=== PATIENT | male | born 1960 ===

== ENCOUNTER 2021-03-03 18:39 | Emergency (ER) | payer OTHER, SELFPAY ==
[2021-03-03 19:07] VITALS: BP 102/68; PULSE 101; RESP 16; TEMP 36.9; O2SAT 99
--- NOTE | 2021-03-03 19:37 | ED.GENADULT ---
HPI - General Adult General Chief complaint: Dental/Oral Stated complaint: Jaw infection. Time Seen by Provider: 03/03/21 18:59 Source: patient and RN notes reviewed Mode of arrival: ambulatory Limitations: no limitations History of Present Illness HPI narrative: Patient presents today complaint of a 1 week history of swelling to the right lower jawline, worse over the last 2 days. He does report some white drainage from the area. He has been cleaning with peroxide and applying triple antibiotic ointment. Reports pain has been progressively worsening as the area has been becoming larger and more reddened. History of diabetes and states his blood sugars are not well controlled. He has not been taking anything for pain at home. MD complaint: Possible abscess to right jaw Related Data Home Medications Medication Instructions Recorded Confirmed dulaglutide [Trulicity] mg SUBCUT 03/03/21 duloxetine mg PO 03/03/21 empagliflozin [Jardiance] mg 03/03/21 glimepiride mg 03/03/21 insulin glargine U-300 conc unit SUBCUT 03/03/21 [Toujeo SoloStar U-300 Insulin] Allergies Allergy/AdvReac Type Severity Reaction Status Date / Time amoxicillin Allergy Unknown Verified 03/03/21 18:59 Review of Systems Review of Systems: CONSTITUTIONAL: Denies body aches, fever, chills, or sweats. EYES: Denies visual changes, redness, or discharge. ENT: Denies rhinorrhea, congestion, sore throat, or otalgia. CARDIOVASCULAR: Denies chest pain, palpitations, or edema. RESPIRATORY: Denies cough or dyspnea. GASTROINTESTINAL: Denies abdominal pain, nausea, vomiting, or diarrhea. GENITOURINARY: Denies dysuria or hematuria. SKIN: Denies rash, itching. + Possible abscess to right jaw MUSCULOSKELETAL: Denies back pain, joint pain, or myalgia. NEUROLOGIC: Denies headache, numbness, tingling, or weakness. PSYCH: Denies depression or anxiety. [facility] Past Medical History Medical History (Updated 03/04/21 @ 10:37 by Argentina Baldwin, QU[place], [place]) Diabetes Social History Social History Smoking status: Smoker, status unknown Alcohol intake: current Comments At time of signature, I have reviewed and agree with nursing past medical, surgical, social and family history unless otherwise noted. Please see nursing chart for further information. There is no relevant family history pertinent to the presenting complaint Exam Narrative: GENERAL: Well-appearing, well-nourished, and in no acute distress. HEAD: Normocephalic, atraumatic. EYES: EOMI. No redness or drainage. Conjunctivae normal. ENT: Mucous membranes pink and moist. NECK: Normal AROM. CHEST: No respiratory distress. EXTREMITIES: Normal range of motion. No edema. SKIN: Warm, dry, no rash. Capillary refill normal. Normal skin turgor. Approximately 3 cm erythematous fluctuant area to the right lower jawline with superficial scabbed area in the center measuring 1.5 cm. Tender to palpation. NEURO: No focal deficits. Alert and oriented x3. Gait steady. PSYCH: Normal affect. No signs of depression or anxiety. Course Vital Signs Vital signs: Vital Signs Temperature 98.5 F 03/03/21 19:07 Pulse Rate 101 H 03/03/21 19:07 Respiratory Rate 16 03/03/21 19:07 Blood Pressure 102/68 03/03/21 19:07 Pulse Oximetry 99 03/03/21 19:07 Temperature 98.5 F 03/03/21 19:07 Pulse Rate 101 H 03/03/21 19:07 Respiratory Rate 16 03/03/21 19:07 Blood Pressure 102/68 03/03/21 19:07 Pulse Oximetry 99 03/03/21 19:07 Reviewed Procedures Abscess I/D face: Date of Incision: 03/03/21 Time of Incision: 19:25 Side (if applicable): right (Lower jaw) Sedation/analgesia: none Local Anesthetic: lidocaine 1% Amount of anesthesia used (mL): 2 Technique: incised with #11 blade Amount of fluid expressed (mL): 4 Irrigation: No Packing used?: iodoform (wick)
== END 2021-03-03 19:50 | disposition home or self-care (01) ==
PROVIDERS: Emergency Provider Nurse Practitioner; PCP Internal Medicine
DX: L02.01 Cutaneous abscess of face (principal); E11.9 Type 2 diabetes mellitus without complications; Z79.84 Long term (current) use of oral hypoglycemic drugs; Z79.4 Long term (current) use of insulin
CPT/HCPCS: 10061; 87070; 87147; 87186; 87205; 99203; G0463

== ENCOUNTER 2022-10-12 08:39 | Emergency (ER) | payer OTHER, SELFPAY ==
[2022-10-12 08:51] VITALS: BP 123/91; PULSE 106; RESP 16; TEMP 36.6; O2SAT 99
--- NOTE | 2022-10-12 09:17 | ED.DENTAL ---
HPI - Dental/Oral General Chief complaint: Dental/Oral Stated complaint: Toothache/Facial Swelling Source: patient Mode of arrival: ambulatory Limitations: no limitations History of Present Illness HPI Narrative: Patient presents for evaluation of left upper dental pain for the last 3 days. Symptoms started after he was eating a pork steak and attempted to remove some food with a toothpick. He states pain is constant, throbbing, 8/10 in severity. He denies any fever, chills, nausea, vomiting. He has been taking Tylenol for symptoms. He has associated left-sided facial swelling. He smokes 1 pack per day. He is diabetic and has a CGM. Readings have been 150-250's range. No additional complaints or concerns. Related Data Home Medications Medication Instructions Recorded Confirmed empagliflozin 25 mg tablet 25 mg PO DAILY 03/03/21 10/12/22 (Jardiance) insulin glargine U-300 conc 300 55 unit subcut DAILY 03/03/21 10/12/22 unit/mL (1.5 mL) subcutaneous pen (Toujeo SoloStar U-300 Insulin) blood-glucose sensor (FreeStyle 10/12/22 10/12/22 Last 3 Sensor device) dulaglutide 1.5 mg/0.5 mL 1.5 mg subcut WEEKLY 10/12/22 10/12/22 subcutaneous pen injector (Trulicity) insulin lispro 100 unit/mL 100 sliding scale dose subcut TID 10/12/22 10/12/22 subcutaneous pen (Humalog KwikPen (U-100) Insulin) venlafaxine 150 mg 150 mg PO DAILY 10/12/22 10/12/22 capsule,extended release 24 hr venlafaxine 75 mg capsule,extended 75 mg PO DAILY 10/12/22 10/12/22 release 24 hr Allergies Allergy/AdvReac Type Severity Reaction Status Date / Time amoxicillin Allergy Unknown Unknown Verified 10/12/22 08:59 Review of Systems Review of Systems: CONSTITUTIONAL: Denies fever, chills, or sweats. EYES: Denies visual changes, redness, or discharge. ENT: Reports left upper dental pain with associated left-sided facial swelling. Denies sore throat. CARDIOVASCULAR: Denies chest pain, palpitations, or edema. RESPIRATORY: Denies cough or dyspnea. GASTROINTESTINAL: Denies abdominal pain, nausea, vomiting, or diarrhea. GENITOURINARY: Denies dysuria or hematuria. SKIN: Denies rash or itching. MUSCULOSKELETAL: Denies back pain, joint pain, or myalgia. NEUROLOGIC: Denies headache, numbness, dizziness, or weakness. PSYCHIATRIC: Denies anxiety or depression. [facility] Past Medical History Medical History Dental infection Depression Diabetes Surgical History Surgical History History of carpal tunnel surgery History of hip surgery History of knee replacement Family History Family History Mother Family history non-contributory Social History Social History Smoking packs per day: 1 Smoking cigarettes per day: 20.0 Smoking status: Current every day smoker Alcohol intake: current Substance use: never Living arrangements: with family Gender identity (if verbalized by the patient): Male Sexual Orientation (if Verbalized by the Patient): Straight or Heterosexual Spiritual care concerns: No Exam Narrative: GENERAL: Well-appearing, well-nourished, and in no acute distress. HEAD: Normocephalic, atraumatic. There is decreased prominence of left nasolabial fold. EYES: PERRLA and EOMI. ENT: Nares clear, no rhinorrhea or epistaxis. Mucous membranes moist. Tooth #14 is absent. No visible or palpable dental abscess. Bilateral TMs pearly lemon nonbulging NECK: Supple. No adenopathy or masses. No carotid bruits or JVD CHEST: Clear to auscultation. No respiratory distress. No wheezes rales or rhonchi HEART: Regular rate and rhythm. No murmur heard. Normal peripheral pulses. ABDOMEN: Soft, nontender, nondistended, normal active bowel sounds. EXTREMITIES: Normal range of mohan
== END 2022-10-12 09:15 | disposition home or self-care (01) ==
PROVIDERS: Emergency Provider Nurse Practitioner; PCP Internal Medicine
DX: K04.7 Periapical abscess without sinus (principal); E11.9 Type 2 diabetes mellitus without complications; Z79.4 Long term (current) use of insulin; F32.A Depression, unspecified
CPT/HCPCS: 99213; G0463

== ENCOUNTER 2023-02-25 18:57 | Emergency (ER) | payer OTHER, SELFPAY ==
[2023-02-25 19:04] VITALS: BP 135/80; PULSE 111; RESP 18; TEMP 36.5; O2SAT 99
--- NOTE | 2023-02-25 19:17 | ED.EXTPRO ---
HPI - Extremity Problem General Chief complaint: Extremity Problem,Nontraumatic Stated complaint: swollen feet/out of insulin Time Seen by Provider: 02/25/23 19:05 Source: patient Mode of arrival: ambulatory Limitations: no limitations History of Present Illness HPI Narrative: Sd is a 62-year-old male patient presenting to the clinic today with complaints of bilateral feet/leg swelling x4 days. He also reports that he is out of his insulin (Tuojeo) and would like a refill. Reports that he called his primary care provider and they told him to come to the urgent care. Related Data Home Medications Medication Instructions Recorded Confirmed empagliflozin 25 mg tablet 25 mg PO DAILY 03/03/21 02/25/23 (Jardiance) insulin glargine U-300 conc 300 55 unit subcut DAILY 03/03/21 02/25/23 unit/mL (1.5 mL) subcutaneous pen (Toujeo SoloStar U-300 Insulin) blood-glucose sensor (FreeStyle 10/12/22 02/25/23 Last 3 Sensor device) dulaglutide 1.5 mg/0.5 mL 1.5 mg subcut WEEKLY 10/12/22 02/25/23 subcutaneous pen injector (Trulicity) insulin lispro 100 unit/mL 100 sliding scale dose subcut TID 10/12/22 02/25/23 subcutaneous pen (Humalog KwikPen (U-100) Insulin) venlafaxine 150 mg 150 mg PO DAILY 10/12/22 02/25/23 capsule,extended release 24 hr venlafaxine 75 mg capsule,extended 75 mg PO DAILY 10/12/22 02/25/23 release 24 hr Allergies Allergy/AdvReac Type Severity Reaction Status Date / Time amoxicillin Allergy Unknown Unknown Verified 02/25/23 19:15 Review of Systems Review of Systems: Pertinent positives per HPI. Patient denies any fever, chills, rash, headache, visual changes, dizziness, cough, runny nose, sore throat, shortness of breath, chest pain, palpitations, nausea, vomiting, diarrhea, constipation, abdominal pain, or any urinary issues. PMF Past Medical History Medical History Dental infection Depression Diabetes Surgical History Surgical History History of carpal tunnel surgery History of hip surgery History of knee replacement Family History Family History Mother Family history non-contributory Social History Social History Smoking packs per day: 1 Smoking cigarettes per day: 20.0 Smoking status: Current every day smoker Alcohol intake: current Substance use: never Living arrangements: with family Gender identity (if verbalized by the patient): Male Sexual Orientation (if Verbalized by the Patient): Straight or Heterosexual Spiritual care concerns: No Comments At the time of my signature, I reviewed and agree with the nursing past medical, surgical, social, and family history. There is no relevant family history pertinent to the patient complaint. Exam Narrative: General: Well-developed, well nourished, in no apparent distress Head: Normocephalic, atraumatic. Cardio: Regular rate and rhythm, s1 and s2 normal, no murmur appreciated. Resp: Clear to auscultation bilaterally, no rhonchi, rales, wheezing or rubs. Musculoskeletal: No deformity, non-tender to palpation, grossly normal range of motion, muscle strength strong and equal, peripheral pulse strong, 1+ pitting edema to the bilateral lower extremities, pain to palpation, no cyanosis, normal gait and station Course Course Emergency Course: Portions of this record may have been created with voice recognition software. Level of Care: Express Care Visit Vital Signs Vital signs: Vital Signs Temperature 36.5 C 02/25/23 19:04 Pulse Rate 111 H 02/25/23 19:04 Respiratory Rate 18 02/25/23 19:04 Blood Pressure 135/80 02/25/23 19:04 Pulse Oximetry 99 02/25/23 19:04 Oxygen Delivery Room Air 02/25/23 19:04 Temperature 36.5 C 02/25
== END 2023-02-25 19:25 | disposition left against medical advice (07) ==
PROVIDERS: Emergency Provider Nurse Practitioner Family; PCP Internal Medicine
DX: R60.0 Localized edema (principal); E11.9 Type 2 diabetes mellitus without complications; F17.210 Nicotine dependence, cigarettes, uncomplicated; F32.A Depression, unspecified
CPT/HCPCS: 99213; G0463

== ENCOUNTER 2023-04-11 17:59 | Emergency (ER) | payer SELFPAY ==
[2023-04-11 18:05] VITALS: BP 102/78; PULSE 135; RESP 18; TEMP 36.4; O2SAT 99
[2023-04-11 18:36] LABS: Glucose Point of Care 367 mg/dl (65-105)
--- NOTE | 2023-04-11 18:45 | ED.GENADULT ---
HPI - General Adult General Chief complaint: Extremity Problem,Nontraumatic Stated complaint: Swelling to Feet Source: patient Mode of arrival: ambulatory Limitations: no limitations History of Present Illness HPI narrative: Patient presents for evaluation of swelling, pain and redness in the bilateral lower extremity. He was evaluated here back in February of last year. He was encouraged to go to the hospital at that time. He opted to leave against medical advice. He has had intermittent swelling, redness and pain in the lower extremities since that time, left greater than the right. He is diabetic and previously had a continuous glucose monitor. He no longer is using that. He ran out of his JardiVoya.ge and has been injecting less than prescribed amount of toujeo, as he has limited medication left. He actually came in today requesting a refill on his toujeo. He is prescribed 55 units daily but has been injecting 50 units to make it last. No fever, chills, nausea, vomiting. His father had a DVT in the past. Patient does smoke. Related Data Home Medications Medication Instructions Recorded Confirmed empagliflozin 25 mg tablet 25 mg PO DAILY 03/03/21 04/11/23 (Jardiance) blood-glucose sensor (FreeStyle 10/12/22 04/11/23 Last 3 Sensor device) dulaglutide 1.5 mg/0.5 mL 1.5 mg subcut WEEKLY 10/12/22 04/11/23 subcutaneous pen injector (Trulicity) insulin lispro 100 unit/mL 100 sliding scale dose subcut TID 10/12/22 04/11/23 subcutaneous pen (Humalog KwikPen (U-100) Insulin) venlafaxine 150 mg 150 mg PO DAILY 10/12/22 04/11/23 capsule,extended release 24 hr venlafaxine 75 mg capsule,extended 75 mg PO DAILY 10/12/22 04/11/23 release 24 hr Allergies Allergy/AdvReac Type Severity Reaction Status Date / Time amoxicillin Allergy Intermediate Rash Verified 04/11/23 18:17 metformin Allergy Mild Abdominal Verified 04/11/23 18:17 Pain Review of Systems Review of Systems: CONSTITUTIONAL: Denies fever, chills, or sweats. EYES: Denies visual changes, redness, or discharge. ENT: Denies rhinorrhea, congestion, sore throat, or otalgia. CARDIOVASCULAR: Reports bilateral lower extremity swelling, left greater than right. Denies chest pain, palpitations RESPIRATORY: Denies cough or dyspnea. GASTROINTESTINAL: Denies abdominal pain, nausea, vomiting, or diarrhea. GENITOURINARY: Denies dysuria or hematuria. SKIN: Reports redness to bilateral lower extremities, left greater than right. MUSCULOSKELETAL: Reports pain in bilateral lower extremities, left greater the right. NEUROLOGIC: Denies headache, numbness, dizziness, or weakness. PSYCHIATRIC: Denies anxiety or depression. [facility] Past Medical History Medical History Dental infection Depression Diabetes Surgical History Surgical History History of carpal tunnel surgery History of hip surgery History of knee replacement Family History Family History Mother Family history non-contributory Social History Social History Smoking packs per day: 1 Smoking cigarettes per day: 20.0 Smoking status: Current every day smoker Alcohol intake: current Substance use: never Living arrangements: with family Gender identity (if verbalized by the patient): Male Sexual Orientation (if Verbalized by the Patient): Straight or Heterosexual Spiritual care concerns: No Exam Narrative: GENERAL: Well-appearing, well-nourished, and in no acute distress. HEAD: Normocephalic, atraumatic. EYES: PERRLA and EOMI. ENT: Nares clear, no rhinorrhea or epistaxis. Mucous membranes moist. Oropharynx without tonsillar hypertrophy exudate or other lesions. Bilateral TMs pearly lemon nonbulging NECK: Supple. No adenopathy
== END 2023-04-11 19:15 | disposition left against medical advice (07) ==
PROVIDERS: Emergency Provider Nurse Practitioner; PCP Internal Medicine
DX: L03.116 Cellulitis of left lower limb (principal); R22.42 Localized swelling, mass and lump, left lower limb; E11.620 Type 2 diabetes mellitus with diabetic dermatitis; Z79.4 Long term (current) use of insulin; F32.A Depression, unspecified; F17.210 Nicotine dependence, cigarettes, uncomplicated
CPT/HCPCS: 82948; 99213; G0463

== ENCOUNTER 2025-02-04 08:28 | Emergency (ER) | payer OTHER, SELFPAY ==
--- OUTSIDE RECORDS SUMMARY | 2014-12-13 03:45 | XMS_ITS | Continuity of Care Document ---
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 Role Phone Santana Mitchell MD Unavailable Unavailable Allergies, Adverse Reactions, Alerts Substance Reaction Status Criticality No Known Allergies Active No Inform ation Medications Medication Instructions Dosage Effective Dates (start - stop) Status Comments tobramycin 0.3 %-dexamethasone 0.1 % eye drops,suspension instill 1 drop by ophthalmic route 4 times every day in the right eye for 1 week - Active multivitamin tablet take 1 tablet by ora l route every day with food - Active Aleve 220 mg capsule - Active Procedures Procedure Date Office/outpatient Visit, Est Office/outpatient Visit, Est Office/outpatient Visit, New Remove Foreign Body From Eye Advance Directives Directive Yes / No Effective Date File Name No Information Encounters Encounter Description Practice Location Reason(s) For Visit Diagnoses Date Provider Providers Copied on Encounter Office/outpa tient Visit, Est [facility], [address], [place], [place], [id number], [place] tel:[phone] SEC Homer SHEA Professional Blurry vision (chief complaint) Punctate keratitis 5 Paula Dillon. [address] [facility], [facility] [place], [id number], [place]. tel:[phone] Referring Provider: Santana Nelson [address] [place] [place], [address] . tel:[phone] Office/outpa [place]ient Visit, [facility] [place], [address] [place] [address] [address], [place], [place], [id number], [phone] SEC [place] SHABBIR Professional WIE (chief complaint) Acute toxic conjunctivitis Punctate keratitis 2 5 Paula Dillon. [address] [facility], [facility] [place], [place], [id number], . tel:[phone] Referring Provider: Santana Nelson, [address] [place], [address] . tel:[phone] Office/outpa tient Visit, [facility], [address], [place], [place], [id number], [phone] SEC [place] SHABBIR Professional Foreign body sensation (chief complaint) Foreign body remaining in the eyelid 5 Juandav Dillon. [address] [facility], [facility] [place], [id number], . tel:[phone] Referring Provider: Santana Nelson, [address] [place], [address] . tel:[phone] Family History Family Member Type Diagnosis Age At Onset No Information Payers Payer name Insurance type Covered alliance party ID Authorlizziea tienedelia(s) [facility] Work Comp [id number] Social History Type Description Quantity Date Captured Comments Alcohol Use Details Unknown Caffeine Use Details Unknown Tobacco Use Status Smoking Status No Information Sex Male Chief Complaint And Reason For Visit From encounter dated '12/13/2014 08:45'. Blurry vision (chief complaint). Description: The 54 year old male presents for a 1 week follow up to punctate keratitis. Patient c/o feels like a hair in OD. Patient is using Tobramycin/dex qid OD. Reason For Referral Reason For Referral No Information History Of Present Illness Encounter Date Complaint History Of Prese nt Illness Blurry vision The 54 year old male presents for a 1 week follow up to punctate keratitis. Patient c/o feels like a hair in OD. Patient is using Tobramycin/dex qid OD. WIE The 54 year old male presents for a WIE in the right eye. Patient states he was seen a few weeks ago and GAW removed an FB. Patient thought the OD was doing okay but today the OD started sweeling, watering, and extremly sensative to light. Foreign body sensation The 54 ye ar old male presents for WIE for FBS. Pt states his eye was blood red a few days ago. He thinks something blew into his eyes at work on Thursday or Thursday. Pt is unsure what got into his eye, but it could have been metal. OD is scratchy feeling at the bottom lid. Pt has tried saline solution. Functional Status Date Functional Assessmen t No Information Instructions Date Instruction Additional Infor mation Return in 10 days wi Santana Mitchell M.D. for follow up exam. Related to Punctate keratitis Impression/Plan - Co ntinue tobramycin/Dexamethasone for 10 days, if symptoms persist return to clinic at that time for follow up or sooner with any problems. Related to Punctate keratitis Follow up - Return i n 10 days with Santana Mitchell M.D. for follow up exam. Related to Punctate keratitis Impression/Plan - Di scussed dx in detail with patient. Start Tobramycin/Dexamethasone 1gtt QID OD erx to [facility]. Return in 1 week for follow up or sooner with any problems Follow up - Return i n 1 week with Santana Mitchell M.D. for follow up exam. - Discussed diagnosi s in detail with patient. Inverted RUL, small FB embedded in RUL, removed with tweezers at slit lamp. Start Tobramycin /Dexamethasone 1gtt QID x 5 days then stop to prevent infection. Return to clinic as needed. Related to Foreign body remaining in the eyelid Foreign body remaini ng in the eyelid - Educational material given Related to Foreign body remaining in the eyelid - as needed Related to Forei gn body remaining in the eyelid Assessments Type Assessment Date assessment Punctate keratitis impression Punctate keratitis: 370.21. OD S Patient Care Teams Name Effective Dates (start - stop) Status Members No Information
--- OUTSIDE RECORDS SUMMARY | 2025-02-04 08:30 | XMS_ITS | Encounter Summary ---
Author Organization [facility] Address [address] [place] [address] Care Team Providers Care Web Merchant Name Role Phone Unavailable Primary Care Provider Unavailabl e Encounter Details Date Type Department Care Team (Late st Contact Info) Description 03/02/2007 Inpatient Historical HIS PATIENT IN A BED Charly Martin MD NO ADDRESS ON FILE Social History Tobacco Use Types Packs/Day Years Used Date Smoking Tobacco: Never Assessed Sex and Gender Information Value Date Recorded Sex Assigned at Not on file Legal Sex Male 5:27 AM DEPARTMENT DIRECTOR Gender Identity Not on file Sexual Orientation Not on file documented as of this encounter Plan of Treatment Not on file documented as of this encounter Procedures Procedure Name Priority Date/Time Associated Diagnosis Comments CBC WITH DIFFERENTIAL Routine 03/10/2007 4:00 AM DEPARTMENT DIRECTOR CBC WITH DIFFERENTIAL Routine 03/10/2007 4:00 AM DEPARTMENT DIRECTOR C-REACTIVE PROTEIN Routine 03/10/2007 4: 00 AM DEPARTMENT DIRECTOR COMPREHENSIVE METABOLIC PANEL Routine 03/10/2007 4:00 AM DEPARTMENT DIRECTOR IRON PANEL Routine 03/09/2007 6:15 AM DEPARTMENT DIRECTOR TSH Routine 03/09/2007 6:15 AM DEPARTMENT DIRECTOR MAGNESIUM LEVEL Routine 03/09/2007 6:15 AM DEPARTMENT DIRECTOR FERRITIN Routine 03/09/2007 6:15 AM DEPARTMENT DIRECTOR CBC WITH DIFFERENTIAL Routine 03/08/2007 4:25 AM DEPARTMENT DIRECTOR CBC WITH DIFFERENTIAL Routine 03/08/2007 4:25 AM DEPARTMENT DIRECTOR C-REACTIVE PROTEIN Routine 03/08/2007 4: 25 AM DEPARTMENT DIRECTOR CBC WITH DIFFERENTIAL Routine 03/06/2007 5:45 AM DEPARTMENT DIRECTOR CBC WITH DIFFERENTIAL Routine 03/06/2007 5:45 AM DEPARTMENT DIRECTOR SEDIMENTATION RATE Routine 03/06/2007 5: 45 AM DEPARTMENT DIRECTOR BASIC METABOLIC PANEL Routine 03/06/2007 5:45 AM DEPARTMENT DIRECTOR SOURCE, FLUID Routine 03/05/2007 11:50 AM DEPARTMENT DIRECTOR SYNOVIAL FLUID CRYSTAL Routine 7 11:50 AM DEPARTMENT DIRECTOR CELL COUNT WITH DIFFERENTIAL, BODY FLUID Routine 03/05/2007 11:50 AM DEPARTMENT DIRECTOR PROTEIN, BODY FLUID Routine 03/05/2007 1 1:50 AM DEPARTMENT DIRECTOR GLUCOSE, BODY FLUID Routine 03/05/2007 1 1:50 AM DEPARTMENT DIRECTOR CMV BY PCR, NON BLOOD Routine 03/05/2007 6:10 AM DEPARTMENT DIRECTOR EBV IGM, VCA Routine 03/05/2007 6:10 AM DEPARTMENT DIRECTOR EBV IGG, VCA Routine 03/05/2007 6:10 AM DEPARTMENT DIRECTOR CMV IGM Routine 03/05/2007 6:10 AM DEPARTMENT DIRECTOR CBC WITH DIFFERENTIAL Routine 03/05/2007 6:10 AM DEPARTMENT DIRECTOR CBC WITH DIFFERENTIAL Routine 03/05/2007 6:10 AM DEPARTMENT DIRECTOR CMV IGG Routine 03/05/2007 6:10 AM DEPARTMENT DIRECTOR C-REACTIVE PROTEIN Routine 03/05/2007 6: 10 AM DEPARTMENT DIRECTOR COMPREHENSIVE METABOLIC PANEL Routine 03/05/2007 6:10 AM DEPARTMENT DIRECTOR CBC WITH DIFFERENTIAL Routine 03/04/2007 4:30 AM DEPARTMENT DIRECTOR CBC WITH DIFFERENTIAL Routine 03/04/2007 4:30 AM DEPARTMENT DIRECTOR C-REACTIVE PROTEIN Routine 03/04/2007 4: 30 AM DEPARTMENT DIRECTOR SEDIMENTATION RATE Routine 03/03/2007 5: 11 AM DEPARTMENT DIRECTOR BASIC METABOLIC PANEL Routine 03/03/2007 5:11 AM DEPARTMENT DIRECTOR CBC WITH DIFFERENTIAL Routine 03/02/2007 7:55 PM DEPARTMENT DIRECTOR CBC WITH DIFFERENTIAL Routine 03/02/2007 7:55 PM DEPARTMENT DIRECTOR C-REACTIVE PROTEIN Routine 03/02/2007 7: 55 PM DEPARTMENT DIRECTOR CK Routine 03/02/2007 7:55 PM DEPARTMENT DIRECTOR COMPREHENSIVE METABOLIC PANEL Routine 03/02/2007 7:55 PM DEPARTMENT DIRECTOR URINALYSIS W/REFLEX MICROSCOPIC Routine 03/02/2007 7:50 PM DEPARTMENT DIRECTOR documented in this encounter Results * CBC WITH DIFFERENTIAL (03/10/2007 4:00 AM DEPARTMENT DIRECTOR) NEUTROPHILS 56 45 - 70 % INTERFAC E SYSTEM LYMPHOCYTES 32 16 - 45 % INTERFAC E SYSTEM MONOCYTES 7 3 - 13 % INTERFACE SYSTEM EOSINOPHILS 3 0 - 7 % INTERFAC E SYSTEM BASOPHILS 2 0 - 2 % INTERFACE SYSTEM NEUTROPHIL ABSOLUTE 3.83 1.90 - 7.00 K/uL INTERFACE SYSTEM LYMPHOCYTE ABSOLUTE 2.21 0.70 - 4.50 K/uL INTERFACE SYSTEM MONOCYTE ABSOLUTE 0.48 0.10 - 1.30 K/uL INTERFACE SYSTEM EOSINOPHIL ABSOLUTE 0.20 0.00 - 0.70 K/uL INTERFACE SYSTEM BASOPHILS ABSOLUTE 0.10 0.00 - 0.20 K/uL INTERFACE SYSTEM 03/10/2007 4:00 AM DEPARTMENT DIRECTOR Julián Nuñez MD HEMATOLOGY ORDERABLES Edited Performing Organization Address City/[facility] Co de Phone Number INTERFACE SYSTEM Refer to clinic/hospital department * (ABNORMAL) CBC WITH DIFFERENTIAL (03/10/2007 4:00 AM DEPARTMENT DIRECTOR) WBC 6.8 4.0 - 9.8 K/uL INTERFACE SYSTEM RBC 3.62(L) 4.50 - 5.40 M/uL INTERFACE SYSTEM HEMOGLOBIN 10.1(L) 13.6 - 16.5 g/dL INTERFACE SYSTEM HEMATOCRIT 29.9(L) 40.0 - 48.0 % INTERFACE SYSTEM MCV 82.6 82.0 - 99.0 fL INTERFACE SYSTEM MCH 27.9 27.2 - 32.6 pg INTERFACE SYSTEM MCHC 33.8 31.5 - 35.5 % INTERFACE SYSTEM RDW 12.1 11.5 - 14.5 % INTERFACE SYSTEM RDW-STDEV 35.7(L) 37.1 - 48.7 fL INTERFACE SYSTEM PLATELETS 377(H) 140 - 350 K/uL INTERFACE SYSTEM MPV 9.3 9.3 - 12.4 fL INTERFACE SYSTEM 03/10/2007 4:00 AM DEPARTMENT DIRECTOR Julián Nuñez MD HEMATOLOGY ORDERABLES Edited Performing Organization Address [facility] Phone Number INTERFACE SYSTEM Refer to clinic/hospital department * (ABNORMAL) COMPREHENSIVE METABOLIC PANEL (03/10/2007 4:00 AM DEPARTMENT DIRECTOR) GLUCOSE 87 65 - 99 mg/dL INTERFACE SYSTEM CREATININE 0.69 0.67 - 1.17 mg/dL INTERFACE SYSTEM CALCIUM 8.6 8.4 - 10.2 mg/dL INTERFACE SYSTEM ALKALINE PHOSPHATASE 57 40 - 129 U/L INTERFACE SYSTEM AST 40(H) 12 - 38 U/L INTERFACE SYSTEM ALT 49(H) 0 - 41 U/L INTERFACE SYSTEM TOTAL PROTEIN 6.5 6.3 - 8.6 g/dL INTERFACE SYSTEM ALBUMIN 3.5 3.4 - 4.8 g/dL INTERFACE SYSTEM BILIRUBIN TOTAL 0.2 0.2 - 1.0 mg/dL INTERFACE SYSTEM BUN 15 6 - 20 mg/dL INTERFACE SYSTEM SODIUM 139 135 - 145 mmol/L INTERFACE SYSTEM POTASSIUM 4.0 3.5 - 4.9 mmol/L INTERFACE SYSTEM CHLORIDE 104 96 - 108 mmol/L INTERFACE SYSTEM CO2 28 22 - 30 mmol/L INTERFACE SYSTEM GFR, >60 >=60 mL/min/1.7 sq meter INTERFACE SYSTEM GFR >60 >=60 mL/min/1.7 sq meter INTERFACE SYSTEM Comment: Estimated GFR rate interpretative information for both Americans and non- Americans is available on the [facility] Intranet at: [email or web address] [email or web address] Select: Lab Policies and Procedures Select: Reference Ranges - GFR 03/10/2007 4:00 AM DEPARTMENT DIRECTOR us Julián Nuñez MD CHEMISTRY ORDERABLES Edited Performing Organization Address [facility] Phone Number INTERFACE SYSTEM Refer to clinic/hospital department * (ABNORMAL) C-REACTIVE PROTEIN (03/10/2007 4:00 AM DEPARTMENT DIRECTOR) CRP 3.5(H) 0.0 - 0.8 mg/dL INTERFACE SYSTEM 03/10/2007 4:00 AM DEPARTMENT DIRECTOR us Julián Nuñez MD CHEMISTRY ORDERABLES Edited Performing Organization Address [facility] Phone Number INTERFACE SYSTEM Refer to clinic/hospital department * TSH (03/09/2007 6:15 AM DEPARTMENT DIRECTOR) TSH 2.64 0.27 - 4.20 uU/mL INTERFACE SYSTEM 03/09/2007 6:15 AM DEPARTMENT DIRECTOR us Julián Nuñez MD CHEMISTRY ORDERABLES Edited Performing Organization Address [facility] Phone Number INTERFACE SYSTEM Refer to clinic/hospital department * MAGNESIUM LEVEL (03/09/2007 6:15 AM DEPARTMENT DIRECTOR) MAGNESIUM 2.1 1.5 - 2.5 mg/dL INTERFACE SYSTEM 03/09/2007 6:15 AM DEPARTMENT DIRECTOR Julián Nuñez MD CHEMISTRY ORDERABLES Edited Performing Organization Address [facility] de Phone Number INTERFACE SYSTEM Refer to clinic/hospital department * (ABNORMAL) FERRITIN (03/09/2007 6:15 AM DEPARTMENT DIRECTOR) FERRITIN 534(H) 30 - 400 ng/mL INTERFACE SYSTEM 03/09/2007 6:15 AM DEPARTMENT DIRECTOR Julián Nuñez MD CHEMISTRY ORDERABLES Edited Performing Organization Address [facility] de Phone Number INTERFACE SYSTEM Refer to clinic/hospital department * (ABNORMAL) IRON PANEL (03/09/2007 6:15 AM DEPARTMENT DIRECTOR) IRON 25(L) 45 - 160 ug/dL INTERFACE SYSTEM TRANSFERRIN 169(L) 200 - 360 mg/dL INTERFACE SYSTEM IRON % SATURATION 12(L) 20 - 50 % INTERFACE SYSTEM TIBC 215(L) 250 - 450 ug/dL INTERFACE SYSTEM 03/09/2007 6:15 AM DEPARTMENT DIRECTOR Result [facility] Julián Nuñez MD CHEMISTRY ORDERABLES Edited Performing Organization Address [facility] Phone Number INTERFACE SYSTEM Refer to clinic/hospital department * CBC WITH DIFFERENTIAL (03/08/2007 4:25 AM DEPARTMENT DIRECTOR) NEUTROPHILS 48 45 - 70 % INTERFAC E SYSTEM LYMPHOCYTES 35 16 - 45 % INTERFAC E SYSTEM MONOCYTES 11 3 - 13 % INTERFACE SYSTEM EOSINOPHILS 5 0 - 7 % INTERFAC E SYSTEM BASOPHILS 1 0 - 2 % INTERFACE SYSTEM NEUTROPHIL ABSOLUTE 2.72 1.90 - 7.00 K/uL INTERFACE SYSTEM LYMPHOCYTE ABSOLUTE 1.98 0.70 - 4.50 K/uL INTERFACE SYSTEM MONOCYTE ABSOLUTE 0.63 0.10 - 1.30 K/uL INTERFACE SYSTEM EOSINOPHIL ABSOLUTE 0.27 0.00 - 0.70 K/uL INTERFACE SYSTEM BASOPHILS ABSOLUTE 0.06 0.00 - 0.20 K/uL INTERFACE SYSTEM 03/08/2007 4:25 AM DEPARTMENT DIRECTOR Julián Nuñez MD HEMATOLOGY ORDERABLES Edited Performing Organization Address [facility] Phone Number INTERFACE SYSTEM Refer to clinic/hospital department * (ABNORMAL) CBC WITH DIFFERENTIAL (03/08/2007 4:25 AM DEPARTMENT DIRECTOR) WBC 5.7 4.0 - 9.8 K/uL INTERFACE SYSTEM RBC 3.28(L) 4.50 - 5.40 M/uL INTERFACE SYSTEM HEMOGLOBIN 9.3(L) 13.6 - 16.5 g/dL INTERFACE SYSTEM HEMATOCRIT 27.2(L) 40.0 - 48.0 % INTERFACE SYSTEM MCV 82.9 82.0 - 99.0 fL INTERFACE SYSTEM MCH 28.4 27.2 - 32.6 pg INTERFACE SYSTEM MCHC 34.2 31.5 - 35.5 % INTERFACE SYSTEM RDW 12.2 11.5 - 14.5 % INTERFACE SYSTEM RDW-STDEV 36.4(L) 37.1 - 48.7 fL INTERFACE SYSTEM PLATELETS 298 140 - 350 K/uL INTERFACE SYSTEM MPV 9.8 9.3 - 12.4 fL INTERFACE SYSTEM 03/08/2007 4:25 AM DEPARTMENT DIRECTOR Julián Nuñez MD HEMATOLOGY ORDERABLES Edited Performing Organization Address [facility] Phone Number INTERFACE SYSTEM Refer to clinic/hospital department * (ABNORMAL) C-REACTIVE PROTEIN (03/08/2007 4:25 AM DEPARTMENT DIRECTOR) CRP 8.7(H) 0.0 - 0.8 mg/dL INTERFACE SYSTEM 03/08/2007 4:25 AM DEPARTMENT DIRECTOR Julián Nuñez MD CHEMISTRY ORDERABLES Edited Performing Organization Address [facility] Phone Number INTERFACE SYSTEM Refer to clinic/hospital department * (ABNORMAL) SEDIMENTATION RATE (03/06/2007 5:45 AM DEPARTMENT DIRECTOR) ESR (SEDIMENTATION RATE) 87(H) 0 - 20 mm/hr INTERFACE SYSTEM 03/06/2007 5:45 AM DEPARTMENT DIRECTOR Charly Martin MD HEMATOLOGY ORDERABLES Edited Performing Organization Address [facility] de Phone Number INTERFACE SYSTEM Refer to clinic/hospital department * (ABNORMAL) CBC WITH DIFFERENTIAL (03/06/2007 5:45 AM DEPARTMENT DIRECTOR) NEUTROPHILS 54 45 - 70 % INTERFAC E SYSTEM LYMPHOCYTES 28 16 - 45 % INTERFAC E SYSTEM MONOCYTES 14(H) 3 - 13 % INTERFACE SYSTEM EOSINOPHILS 3 0 - 7 % INTERFAC E SYSTEM BASOPHILS 1 0 - 2 % INTERFACE SYSTEM NEUTROPHIL ABSOLUTE 2.68 1.90 - 7.00 K/uL INTERFACE SYSTEM LYMPHOCYTE ABSOLUTE 1.40 0.70 - 4.50 K/uL INTERFACE SYSTEM MONOCYTE ABSOLUTE 0.68 0.10 - 1.30 K/uL INTERFACE SYSTEM EOSINOPHIL ABSOLUTE 0.15 0.00 - 0.70 K/uL INTERFACE SYSTEM BASOPHILS ABSOLUTE 0.04 0.00 - 0.20 K/uL INTERFACE SYSTEM 03/06/2007 5:45 AM DEPARTMENT DIRECTOR Charly Martin MD HEMATOLOGY ORDERABLES Edited Performing Organization Address [facility] Phone Number INTERFACE SYSTEM Refer to clinic/hospital department * (ABNORMAL) CBC WITH DIFFERENTIAL (03/06/2007 5:45 AM DEPARTMENT DIRECTOR) Pathologist [facility] WBC 5.0 4.0 - 9.8 K/uL INTERFACE SYSTEM RBC 3.34(L) 4.50 - 5.40 M/uL INTERFACE SYSTEM HEMOGLOBIN 9.4(L) 13.6 - 16.5 g/dL INTERFACE SYSTEM HEMATOCRIT 27.8(L) 40.0 - 48.0 % INTERFACE SYSTEM MCV 83.2 82.0 - 99.0 fL INTERFACE SYSTEM MCH 28.1 27.2 - 32.6 pg INTERFACE SYSTEM MCHC 33.8 31.5 - 35.5 % INTERFACE SYSTEM RDW 12.2 11.5 - 14.5 % INTERFACE SYSTEM RDW-STDEV 37.3 37.1 - 48.7 fL INTERFACE SYSTEM PLATELETS 240 140 - 350 K/uL INTERFACE SYSTEM MPV 9.7 9.3 - 12.4 fL INTERFACE SYSTEM 03/06/2007 5:45 AM DEPARTMENT DIRECTOR Charly Martin MD HEMATOLOGY ORDERABLES Edited Performing Organization Address [facility] Phone Number INTERFACE SYSTEM Refer to clinic/hospital department * (ABNORMAL) BASIC METABOLIC PANEL (03/06/2007 5:45 AM DEPARTMENT DIRECTOR) GLUCOSE 91 65 - 99 mg/dL INTERFACE SYSTEM CREATININE 0.70 0.67 - 1.17 mg/dL INTERFACE SYSTEM CALCIUM 7.8(L) 8.4 - 10.2 mg/dL INTERFACE SYSTEM BUN 14 6 - 20 mg/dL INTERFACE SYSTEM SODIUM 134(L) 135 - 145 mmol/L INTERFACE SYSTEM POTASSIUM 3.7 3.5 - 4.9 mmol/L INTERFACE SYSTEM CHLORIDE 99 96 - 108 mmol/L INTERFACE SYSTEM CO2 28 22 - 30 mmol/L INTERFACE SYSTEM GFR, >60 >=60 mL/min/1. 7 sq meter INTERFACE SYSTEM GFR >60 >=60 mL/min/1. 7 sq meter INTERFACE SYSTEM Comment: Estimated GFR rate interpretative information for both Americans and non- Americans is available on the [facility] Intranet at: [email or web address] Information [email or web address] Select: Lab Policies and Procedures Select: Reference Ranges - GFR 03/06/2007 5:45 AM DEPARTMENT DIRECTOR Charly Martin MD CHEMISTRY ORDERABLES Edited Performing Organization Address [facility] Phone Number INTERFACE SYSTEM Refer to clinic/hospital department * SOURCE, FLUID (03/05/2007 11:50 AM DEPARTMENT DIRECTOR) SOURCE FLUID Knee, Left INTERF CLARI SYSTEM 03/05/2007 11:5 0 AM DEPARTMENT DIRECTOR Charly Martin MD HEMATOLOGY ORDERABLES Edited Performing Organization Address [facility] de Phone Number INTERFACE SYSTEM Refer to clinic/hospital department * (ABNORMAL) SYNOVIAL FLUID CRYSTAL (03/05/2007 11:50 AM DEPARTMENT DIRECTOR) JOINT FLD CRYSTAL QTY Rare(A) Negative INTERFACE SYSTEM JOINT FLD CRYSTAL TYPE Extracellular INTERFACE SYSTEM JOINT FLD CRYSTAL Ca. Pyrophosphate INTERFACE SYSTEM Comment:Basic Calcium Phosph ate crystals are also present. JOINT FLD ADD'L CRYSTAL QTY Rare(A) Negative INTERFACE SYSTEM CRYSTALS INTERPRETED BY: Bebo John MD INTERFACE SYSTEM 03/05/2007 11:5 0 AM DEPARTMENT DIRECTOR us Charly Martin MD BODY FLUIDS AND STOOLS Edited Performing Organization Address [facility] Phone Number INTERFACE SYSTEM Refer to clinic/hospital department * PROTEIN, BODY FLUID (03/05/2007 11:50 AM DEPARTMENT DIRECTOR) PROTEIN, FLD 5.0 g/dL INTERFA CE SYSTEM Comment: Total Protein Fluid Interpretation: Transudate: <2.5 - 3.0 g/dL Exudate: >3.0 g/dL 03/05/2007 11:5 0 AM DEPARTMENT DIRECTOR us Charly Martin MD BODY FLUIDS AND STOOLS Edited Performing Organization Address [facility] Phone Number INTERFACE SYSTEM Refer to clinic/hospital department * GLUCOSE, BODY FLUID (03/05/2007 11:50 AM DEPARTMENT DIRECTOR) GLUCOSE, FLD 35 mg/dL INTERFA CE SYSTEM Comment: Glucose Fluid Interpretation: Transudate: Fluid/Serum Ratio >0.5 Exudate: Fluid/Serum Ratio <0.5 or <60 mg/dL 03/05/2007 11:5 0 AM DEPARTMENT DIRECTOR us Charly Martin MD BODY FLUIDS AND STOOLS Edited Performing Organization Address [facility] Phone Number INTERFACE SYSTEM Refer to clinic/hospital department * CELL COUNT WITH DIFFERENTIAL, BODY FLUID (03/05/2007 11:50 AM DEPARTMENT DIRECTOR) WBC, FLD 85,831 /uL INTERFACE SYSTEM RBC, FLD <10,000 /uL INTERFACE SYSTEM NEUTROPHILS, FLD 96 % INTERFACE SYSTEM LYMPHOCYTE, FLD 3 % INTERFACE SYSTEM MACROPHAGE, FLD 1 % INTERFACE SYSTEM CELLS COUNTED, FLD 100 WBC Counted INTERFACE SYSTEM 03/05/2007 11:5 0 AM DEPARTMENT DIRECTOR us Charly Martin MD BODY FLUIDS AND STOOLS Edited Performing Organization Address [facility] de Phone Number INTERFACE SYSTEM Refer to clinic/hospital department * (ABNORMAL) CBC WITH DIFFERENTIAL (03/05/2007 6:10 AM DEPARTMENT DIRECTOR) NEUTROPHILS 61 45 - 70 % INTERFAC E SYSTEM LYMPHOCYTES 23 16 - 45 % INTERFAC E SYSTEM MONOCYTES 14(H) 3 - 13 % INTERFACE SYSTEM EOSINOPHILS 2 0 - 7 % INTERFAC E SYSTEM BASOPHILS 1 0 - 2 % INTERFACE SYSTEM NEUTROPHIL ABSOLUTE 3.72 1.90 - 7.00 K/uL INTERFACE SYSTEM LYMPHOCYTE ABSOLUTE 1.41 0.70 - 4.50 K/uL INTERFACE SYSTEM MONOCYTE ABSOLUTE 0.82 0.10 - 1.30 K/uL INTERFACE SYSTEM EOSINOPHIL ABSOLUTE 0.11 0.00 - 0.70 K/uL INTERFACE SYSTEM BASOPHILS ABSOLUTE 0.03 0.00 - 0.20 K/uL INTERFACE SYSTEM 03/05/2007 6:10 AM DEPARTMENT DIRECTOR us Julián Nuñez MD HEMATOLOGY ORDERABLES Edited Performing Organization Address [facility] de Phone Number INTERFACE SYSTEM Refer to clinic/hospital department * (ABNORMAL) CBC WITH DIFFERENTIAL (03/05/2007 6:10 AM DEPARTMENT DIRECTOR) WBC 6.1 4.0 - 9.8 K/uL INTERFACE SYSTEM RBC 3.79(L) 4.50 - 5.40 M/uL INTERFACE SYSTEM HEMOGLOBIN 10.9(L) 13.6 - 16.5 g/dL INTERFACE SYSTEM HEMATOCRIT 31.6(L) 40.0 - 48.0 % INTERFACE SYSTEM MCV 83.4 82.0 - 99.0 fL INTERFACE SYSTEM MCH 28.8 27.2 - 32.6 pg INTERFACE SYSTEM MCHC 34.5 31.5 - 35.5 % INTERFACE SYSTEM RDW 12.2 11.5 - 14.5 % INTERFACE SYSTEM RDW-STDEV 37.1 37.1 - 48.7 fL INTERFACE SYSTEM PLATELETS 280 140 - 350 K/uL INTERFACE SYSTEM MPV 9.8 9.3 - 12.4 fL INTERFACE SYSTEM 03/05/2007 6:10 AM DEPARTMENT DIRECTOR Julián Nuñez MD HEMATOLOGY ORDERABLES Edited Performing Organization Address [facility] Phone Number INTERFACE SYSTEM Refer to clinic/hospital department * EBV IGM, VCA (03/05/2007 6:10 AM DEPARTMENT DIRECTOR) EBV IGM, VCA < OR = 0.90 EIA Value INTERFACE SYSTEM Comment: EIA VALUE INTERPRETATION < OR = 0.90 NEGATIVE - NO ANTIBODY DETECTED 0.91 - 1.09 EQUIVOCAL > OR = 1.10 POSITIVE - ANTIBODY DETECTED A POSITIVE RESULT IS INDICATIVE OF IGM ANTIBODY TO EBV VCA. THE CLINICAL DIAGNOSIS MUST BE INTERPRETED IN CONJUNCTION WITH THE CLINICAL SIGNS AND SYMPTOMS OF THE PATIENT. Lab test performed by: [employer] [id number] MIKHAIL DIAZ MD 03/05/2007 6:10 AM DEPARTMENT DIRECTOR Julián Nuñez MD CHEMISTRY ORDERABLES COM Edit ed Performing Organization Address [facility] Number INTERFACE SYSTEM Refer to clinic/hospital department * (ABNORMAL) EBV IGG, VCA (03/05/2007 6:10 AM DEPARTMENT DIRECTOR) EBV IGG, VCA >5.00(H) EIA Value INTERFA CE SYSTEM Comment: EIA VALUE INTERPRETATION < OR = 0.90 NEGATIVE - NO ANTIBODY DETECTED 0.91 - 1.09 EQUIVOCAL > OR = 1.10 POSITIVE - ANTIBODY DETECTED A POSITIVE RESULT INDICATES THAT THE PATIENT HAS ANTIBODY TO EBV VCA. IT DOES NOT DIFFERENTIATE BETWEEN AN ACTIVE OR PAST INFECTION. THE CLINICAL DIAGNOSIS MUST BE INTERPRETED IN CONJUNCTION WITH THE CLINICAL SIGNS AND SYMPTOMS OF THE PATIENT. Lab test performed by: [employer] [id number] MIKHAIL DIAZ MD 03/05/2007 6:10 AM DEPARTMENT DIRECTOR Julián Nuñez MD CHEMISTRY ORDERABLES Edited Performing Organization Address [facility] Phone Number INTERFACE SYSTEM Refer to clinic/hospital department * CMV BY PCR (03/05/2007 6:10 AM DEPARTMENT DIRECTOR) CMV SPECIMEN SOURCE Whole Blood INTERFACE SYSTEM CMV BY PCR Negative Negative INTERFACE SYSTEM Comment: Specimen Source: (CSF) Specimen specific comments: The presence of cytomegalovirus in cerebrosp inal fluid (CSF) as detected by PCR appears to correlate with infections of the central nervous systems ([employer]). CMV DNA detectable at a dilution of CSF equal to or greater than 1:1000 has correlated with clinically significant widespread infection of the [employer]. The clinical significance of lower levels is not well defined. The sensitivity of PCR for CMV infection of the [employer] appears to be high. Specificity also appears to be high as CMV DNA was not detected in the CSF of a limited number of immunosuppressed transplant recipients tested who were experiencing systemic CMV disease but did not have a CMV [employer] disease. General Comments: This test was developed and it?s performance characteristics determined by [facility]. It has not been cleared or approved by the U.S. Food and Drug Administration. Specimen Source: (Blood) Specimen specific comments: This assay is based on quantitative real-ti me PCR. The primers used amplify a conserved 61 bp region of the DNA polymerase gene of human CMV. Based on data from the [facility], these primers do not amplify any of the other seven human herpes viruses or human DNA sequences. It is thought that close to 100% of CMV strains will amplify with these primers, although genotypic sequence variations could result in a false negative result. This assay expresses results in units of CMV genome copies per mL of blood. The theoretical lower limit of detection of the assay is 200 copies/mL. The assay is accurate for quantitation in the range 2,000 - 1,250,000 genome copies/mL. Specimens found to have detectable CMV DNA beneath the level of accurate quantitation are reported as Positive, <2,000 genome copies/mL. If the specimen is found to be positive with greater than 1,250,000 genome copies/mL, a preliminary report is issued stating Positive: >1,250,000 copies/mL, and the specimen is subsequently retested after dilution to determine the actual copy number. Currently, there are no accepted standards for correlating specific copy numbers with CMV disease. Studies in our laboratory have shown that the quantitative assay is more sensitive than the qualitative PCR and the shell vial culture methods previously employed. In these studies, positive results ranged from 600 to 35,000,000 copies/mL. When the quantitative assay was positive but below the level of accurate quantitation, the qualitative PCR and culture assays were usually negative. At a level of 4,000 copies/mL approximately 60% of qualitative PCR assays were positive. In these evaluations, the shell vial culture was only positive at levels above 15,000 copies/mL. General comment: This test was developed and it's performance characteristics determined by [facility]. It's not been cleared or approved by the U.S. Food and Drug Administration. Testing performed by [facility], [place], [place]. 03/05/2007 6:10 AM DEPARTMENT DIRECTOR Julián Nuñez MD BODY FLUIDS AND STOOLS Edited Performing Organization Address [facility] de Phone Number INTERFACE SYSTEM Refer to clinic/hospital department * (ABNORMAL) CMV IGG (03/05/2007 6:10 AM DEPARTMENT DIRECTOR) CMV IGG >5.00(H) EIA Value INTERFACE SYSTEM Comment: EIA VALUE EXPLANATION OF TEST RESULTS --------- < OR = 0.90 NEGATIVE - NO CMV IGG ANTIBODY DETECTED 0.91 - 1.09 EQUIVOCAL > OR = 1.10 POSITIVE - CMV IGG ANTIBODY DETECTED A POSITIVE RESULT INDICATES THAT THE PATIENT HAS ANTIBODY TO CMV. IT DOES NOT DIFFERENTIATE BETWEEN AN ACTIVE OR PAST INFECTION. THE CLINICAL DIAGNOSIS MUST BE INTERPRETED IN CONJUNCTION WITH THE CLINICAL SIGNS AND SYMPTOMS OF THE PATIENT. Lab test performed by: [facility] [id number] [place] [address] MIKHAIL DIAZ MD 03/05/2007 6:10 AM DEPARTMENT DIRECTOR Julián Nuñez MD CHEMISTRY ORDERABLES Edited Performing Organization Address [facility] de Phone Number INTERFACE SYSTEM Refer to clinic/hospital department * CMV IGM (03/05/2007 6:10 AM DEPARTMENT DIRECTOR) CMV IGM 0.34 EIA Value INTERFACE SYSTEM Comment: INDEX VALUE EXPLANATION OF TEST RESULTS < 0.90 NEGATIVE - NO CMV IGM ANTIBODY DETECTED 0.90 - 1.10 EQUIVOCAL > OR = 1.11 POSITIVE - CMV IGM ANTIBODY DETECTED RESULTS FROM ANY ONE IGM ASSAY SHOULD NOT BE USED A SOLE DETERMINANT OF A CURRENT OR RECENT INFECTION. BECAUSE IGM TESTS CAN YIELD FALSE POSITIVE RESULTS AND LOW LEVELS OF IGM ANTIBODY MAY PERSIST FOR MORE THAN 12 MONTHS POST INFECTION, RELIANCE ON A SINGLE TEST RESULT COULD BE MISLEADING. IF AN ACUTE INFECTION IS SUSPECTED, CONSIDER OBTAINING A NEW SPECIMEN AND SUBMIT FOR BOTH IGG AND IGM TESTING IN TWO OR MORE WEEKS. Lab test performed by: [facility] [id number] [place] [address] MIKHAIL DIAZ MD 03/05/2007 6:10 AM DEPARTMENT DIRECTOR Julián Nuñez MD CHEMISTRY ORDERABLES Edited Performing Organization Address [facility] de Phone Number INTERFACE SYSTEM Refer to clinic/hospital department * (ABNORMAL) C-REACTIVE PROTEIN (03/05/2007 6:10 AM DEPARTMENT DIRECTOR) CRP 8.2(H) 0.0 - 0.8 mg/dL INTERFACE SYSTEM 03/05/2007 6:10 AM DEPARTMENT DIRECTOR Julián Nuñez MD CHEMISTRY ORDERABLES Edited Performing Organization Address [facility] Phone Number INTERFACE SYSTEM Refer to clinic/hospital department * (ABNORMAL) COMPREHENSIVE METABOLIC PANEL (03/05/2007 6:10 AM DEPARTMENT DIRECTOR) GLUCOSE 103(H) 65 - 99 mg/dL INTERFACE SYSTEM CREATININE 0.69 0.67 - 1.17 mg/dL INTERFACE SYSTEM CALCIUM 8.3(L) 8.4 - 10.2 mg/dL INTERFACE SYSTEM ALKALINE PHOSPHATASE 57 40 - 129 U/L INTERFACE SYSTEM AST 23 12 - 38 U/L INTERFACE SYSTEM ALT 34 0 - 41 U/L INTERFACE SYSTEM TOTAL PROTEIN 6.7 6.3 - 8.6 g/dL INTERFACE SYSTEM ALBUMIN 3.6 3.4 - 4.8 g/dL INTERFACE SYSTEM BILIRUBIN TOTAL 0.4 0.2 - 1.0 mg/dL INTERFACE SYSTEM BUN 11 6 - 20 mg/dL INTERFACE SYSTEM SODIUM 131(L) 135 - 145 mmol/L INTERFACE SYSTEM POTASSIUM 3.6 3.5 - 4.9 mmol/L INTERFACE SYSTEM CHLORIDE 95(L) 96 - 108 mmol/L INTERFACE SYSTEM CO2 26 22 - 30 mmol/L INTERFACE SYSTEM GFR, >60 >=60 mL/min/1. 7 sq meter INTERFACE SYSTEM GFR >60 >=60 mL/min/1. 7 sq meter INTERFACE SYSTEM Comment: Estimated GFR rate interpretative information for both Americans and non- Americans is available on the [facility] Intranet at: [email or web address] Select: Lab Policies and Procedures Select: Reference Ranges - GFR 03/05/2007 6:10 AM DEPARTMENT DIRECTOR us Julián Nuñez MD CHEMISTRY ORDERABLES Edited INTERFACE SYSTEM Refer to clinic/hospital department * CBC WITH DIFFERENTIAL (03/04/2007 4:30 AM DEPARTMENT DIRECTOR) NEUTROPHIL ABSOLUTE 3.42 1.90 - 7.00 K/uL INTERFACE SYSTEM LYMPHOCYTE ABSOLUTE 1.51 0.70 - 4.50 K/uL INTERFACE SYSTEM MONOCYTE ABSOLUTE 0.45 0.10 - 1.30 K/uL INTERFACE SYSTEM EOSINOPHIL ABSOLUTE 0.22 0.00 - 0.70 K/uL INTERFACE SYSTEM BASOPHILS ABSOLUTE 0.00 0.00 - 0.20 K/uL INTERFACE SYSTEM NEUTROPHILS, SEG 57 45 - 70 % INT ERFACE SYSTEM BANDS 4 0 - 5 % INTERFACE SYSTEM LYMPHOCYTES 25 16 - 45 % INTERFAC E SYSTEM MONOCYTES 8 3 - 13 % INTERFACE SYSTEM EOSINOPHILS 4 0 - 7 % INTERFAC E SYSTEM BASOPHILS 0 0 - 2 % INTERFACE SYSTEM ATYPICAL LYMPHOCYTE 2 0 - 5 % INTERFACE SYSTEM PLATELET EST. Consistent w/ count Normal INTERFACE SYSTEM ANISOCYTOSIS Slight INTERFA CE SYSTEM POIKILOCYTES Slight INTERFA CE SYSTEM MICROCYTES Slight INTERFACE SYSTEM CLUMPED PLATELETS Present INTERFACE SYSTEM GIANT PLATELETS Present INTE RFACE SYSTEM 03/04/2007 4:30 AM DEPARTMENT DIRECTOR Julián Nuñez MD HEMATOLOGY ORDERABLES Edited Performing Organization Address [facility] Phone Number INTERFACE SYSTEM Refer to clinic/hospital department * (ABNORMAL) CBC WITH DIFFERENTIAL (03/04/2007 4:30 AM DEPARTMENT DIRECTOR) WBC 5.6 4.0 - 9.8 K/uL INTERFACE SYSTEM RBC 3.75(L) 4.50 - 5.40 M/uL INTERFACE SYSTEM HEMOGLOBIN 10.8(L) 13.6 - 16.5 g/dL INTERFACE SYSTEM HEMATOCRIT 30.7(L) 40.0 - 48.0 % INTERFACE SYSTEM MCV 81.9(L) 82.0 - 99.0 fL INTERFACE SYSTEM MCH 28.8 27.2 - 32.6 pg INTERFACE SYSTEM MCHC 35.2 31.5 - 35.5 % INTERFACE SYSTEM RDW 12.1 11.5 - 14.5 % INTERFACE SYSTEM RDW-STDEV 35.9(L) 37.1 - 48.7 fL INTERFACE SYSTEM PLATELETS 252 140 - 350 K/uL INTERFACE SYSTEM MPV 10.1 9.3 - 12.4 fL INTERFACE SYSTEM 03/04/2007 4:30 AM DEPARTMENT DIRECTOR Julián Nuñez MD HEMATOLOGY ORDERABLES Edited Performing Organization Address [facility] Phone Number INTERFACE SYSTEM Refer to clinic/hospital department * (ABNORMAL) C-REACTIVE PROTEIN (03/04/2007 4:30 AM DEPARTMENT DIRECTOR) CRP 4.8(H) 0.0 - 0.8 mg/dL INTERFACE SYSTEM 03/04/2007 4:30 AM DEPARTMENT DIRECTOR Julián Nuñez MD CHEMISTRY ORDERABLES Edited Performing Organization Address [facility] Phone Number INTERFACE SYSTEM Refer to clinic/hospital department * (ABNORMAL) SEDIMENTATION RATE (03/03/2007 5:11 AM DEPARTMENT DIRECTOR) ESR (SEDIMENTATION RATE) 66(H) 0 - 20 mm/hr INTERFACE SYSTEM 03/03/2007 5:11 AM DEPARTMENT DIRECTOR us Charly Martin MD HEMATOLOGY ORDERABLES Edited Performing Organization Address [facility] Co de Phone Number INTERFACE SYSTEM Refer to clinic/hospital department * (ABNORMAL) BASIC METABOLIC PANEL (03/03/2007 5:11 AM DEPARTMENT DIRECTOR) GLUCOSE 86 65 - 99 mg/dL INTERFACE SYSTEM CREATININE 0.73 0.67 - 1.17 mg/dL INTERFACE SYSTEM CALCIUM 8.2(L) 8.4 - 10.2 mg/dL INTERFACE SYSTEM BUN 13 6 - 20 mg/dL INTERFACE SYSTEM SODIUM 136 135 - 145 mmol/L INTERFACE SYSTEM POTASSIUM 3.2(L) 3.5 - 4.9 mmol/L INTERFACE SYSTEM CHLORIDE 102 96 - 108 mmol/L INTERFACE SYSTEM CO2 26 22 - 30 mmol/L INTERFACE SYSTEM GFR, >60 >=60 mL/min/1. 7 sq meter INTERFACE SYSTEM GFR >60 >=60 mL/min/1. 7 sq meter INTERFACE SYSTEM Comment: Estimated GFR rate interpretative information for both Americans and non- Americans is available on the [facility] Intranet at: [email or web address] Select: Lab Policies and Procedures Select: Reference Ranges - GFR 03/03/2007 5:11 AM DEPARTMENT DIRECTOR us Charly Martin MD CHEMISTRY ORDERABLES Edited Performing Organization Address [facility] de Phone Number INTERFACE SYSTEM Refer to clinic/hospital department * (ABNORMAL) COMPREHENSIVE METABOLIC PANEL (03/02/2007 7:55 PM DEPARTMENT DIRECTOR) GLUCOSE 106(H) 65 - 99 mg/dL INTERFACE SYSTEM CREATININE 0.74 0.67 - 1.17 mg/dL INTERFACE SYSTEM CALCIUM 8.1(L) 8.4 - 10.2 mg/dL INTERFACE SYSTEM ALKALINE PHOSPHATASE 63 40 - 129 U/L INTERFACE SYSTEM AST 29 12 - 38 U/L INTERFACE SYSTEM ALT 34 0 - 41 U/L INTERFACE SYSTEM TOTAL PROTEIN 6.8 6.3 - 8.6 g/dL INTERFACE SYSTEM ALBUMIN 3.6 3.4 - 4.8 g/dL INTERFACE SYSTEM BILIRUBIN TOTAL 0.3 0.2 - 1.0 mg/dL INTERFACE SYSTEM BUN 16 6 - 20 mg/dL INTERFACE SYSTEM SODIUM 135 135 - 145 mmol/L INTERFACE SYSTEM POTASSIUM 3.6 3.5 - 4.9 mmol/L INTERFACE SYSTEM CHLORIDE 102 96 - 108 mmol/L INTERFACE SYSTEM CO2 24 22 - 30 mmol/L INTERFACE SYSTEM GFR, >60 >=60 mL/min/1. 7 sq meter INTERFACE SYSTEM GFR >60 >=60 mL/min/1. 7 sq meter INTERFACE SYSTEM Comment: Estimated GFR rate interpretative information for both Americans and non- Americans is available on the [facility] Intranet at: [email or web address] Select: Lab Policies and Procedures Select: Reference Ranges - GFR 03/02/2007 7:55 PM DEPARTMENT DIRECTOR Julián Nuñez MD CHEMISTRY ORDERABLES Edited Performing Organization Address [facility] de Phone Number INTERFACE SYSTEM Refer to clinic/hospital department * CK (03/02/2007 7:55 PM DEPARTMENT DIRECTOR) Pathologist [facility] CK 33 10 - 170 U/L INTERFACE SYSTEM 03/02/2007 7:55 PM DEPARTMENT DIRECTOR Julián Nuñez MD CHEMISTRY ORDERABLES Edited Performing Organization Address [facility] de Phone Number INTERFACE SYSTEM Refer to clinic/hospital department * (ABNORMAL) CBC WITH DIFFERENTIAL (03/02/2007 7:55 PM DEPARTMENT DIRECTOR) NEUTROPHILS 64 45 - 70 % INTERFAC E SYSTEM LYMPHOCYTES 19 16 - 45 % INTERFAC E SYSTEM MONOCYTES 10 3 - 13 % INTERFACE SYSTEM EOSINOPHILS 6 0 - 7 % INTERFAC E SYSTEM BASOPHILS 1 0 - 2 % INTERFACE SYSTEM NEUTROPHIL ABSOLUTE 1.99 1.90 - 7.00 K/uL INTERFACE SYSTEM LYMPHOCYTE ABSOLUTE 0.60(L) 0.70 - 4.50 K/uL INTERFACE SYSTEM MONOCYTE ABSOLUTE 0.31 0.10 - 1.30 K/uL INTERFACE SYSTEM EOSINOPHIL ABSOLUTE 0.20 0.00 - 0.70 K/uL INTERFACE SYSTEM BASOPHILS ABSOLUTE 0.03 0.00 - 0.20 K/uL INTERFACE SYSTEM 03/02/2007 7:55 PM DEPARTMENT DIRECTOR us Julián Nuñez MD HEMATOLOGY ORDERABLES Edited Performing Organization Address [facility] Phone Number INTERFACE SYSTEM Refer to clinic/hospital department * (ABNORMAL) CBC WITH DIFFERENTIAL (03/02/2007 7:55 PM DEPARTMENT DIRECTOR) WBC 3.1(L) 4.0 - 9.8 K/uL INTERFACE SYSTEM RBC 3.86(L) 4.50 - 5.40 M/uL INTERFACE SYSTEM HEMOGLOBIN 11.2(L) 13.6 - 16.5 g/dL INTERFACE SYSTEM HEMATOCRIT 32.2(L) 40.0 - 48.0 % INTERFACE SYSTEM MCV 83.4 82.0 - 99.0 fL INTERFACE SYSTEM MCH 29.0 27.2 - 32.6 pg INTERFACE SYSTEM MCHC 34.8 31.5 - 35.5 % INTERFACE SYSTEM RDW 11.9 11.5 - 14.5 % INTERFACE SYSTEM RDW-STDEV 36.3(L) 37.1 - 48.7 fL INTERFACE SYSTEM PLATELETS 224 140 - 350 K/uL INTERFACE SYSTEM MPV 9.8 9.3 - 12.4 fL INTERFACE SYSTEM 03/02/2007 7:55 PM DEPARTMENT DIRECTOR us Julián Nuñez MD HEMATOLOGY ORDERABLES Edited Performing Organization Address [facility] Phone Number INTERFACE SYSTEM Refer to clinic/hospital department * (ABNORMAL) C-REACTIVE PROTEIN (03/02/2007 7:55 PM DEPARTMENT DIRECTOR) CRP 5.6(H) 0.0 - 0.8 mg/dL INTERFACE SYSTEM 03/02/2007 7:55 PM DEPARTMENT DIRECTOR us Julián Nuñez MD CHEMISTRY ORDERABLES Edited Performing Organization Address [facility] Phone Number INTERFACE SYSTEM Refer to clinic/hospital department * (ABNORMAL) URINALYSIS (03/02/2007 7:50 PM DEPARTMENT DIRECTOR) COLOR UA Yellow INTERFACE SYSTEM CLARITY UA Clear Clear INTERFACE SYSTEM SPECIFIC GRAVITY UA 1.028 1.001 - 1.035 INTERFACE SYSTEM PH UA 5.5 5.0 - 8.0 INTERFACE SYSTEM LEUKOCYTE ESTERASE UA Negative Negative INTERFACE SYSTEM NITRITE UA Negative Negative INTERFACE SYSTEM PROTEIN UA Trace(A) Negative INTERFACE SYSTEM GLUCOSE UA Negative Negative INTERFACE SYSTEM KETONES UA Negative Negative INTERFACE SYSTEM UROBILINOGEN UA <1 <=1 mg/dL INTE RFACE SYSTEM BILIRUBIN UA Negative Negative INTERFA CE SYSTEM BLOOD UA Negative Negative INTERFACE SYSTEM WBC UA <1 0 - 3 /HPF INTERFACE SYSTEM RBC UA 1 0 - 3 /HPF INTERFACE SYSTEM BACTERIA UA 1+(A) None Seen /HPF INTERFACE SYSTEM 03/02/2007 7:50 PM DEPARTMENT DIRECTOR us Julián Nuñez MD URINE ORDERABLES Edited INTERFACE SYSTEM Refer to clinic/hospital department documented in this encounter Visit Diagnoses Not on filedocumented in this encounter
--- OUTSIDE RECORDS SUMMARY | 2025-02-04 08:30 | XMS_ITS | Clinical Summary ---
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
--- OUTSIDE RECORDS SUMMARY | 2025-02-04 08:30 | XMS_ITS | Encounter Summary ---
Author Organization [facility] Address [address] [place] [address] Care Team Providers Care Fellmongery Worker Name Role Phone Unavailable Primary Care Provider Unavailabl e Encounter Details Date Type Department Care Team (Late st Contact Info) Description 03/03/2007 Outpatient Historical [facility] Supp Svcs Blood Flow [address] [place] [address] Guerrero Urena MD 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
--- OUTSIDE RECORDS SUMMARY | 2025-02-04 08:30 | XMS_ITS | Clinical Summary ---
Author Organization [facility] Address [address] [place] [id number] Care Team Providers Care Business Programmer Name Role Phone Bismark Muñoz MD Primary Care Provider [phone] Allergies Active Allergy Reactions Criticality Noted Date Comments Amoxicillin Unknown 11/29/2019 Metformin Other (See comments) Low Made kidneys hurt Vancomycin Rash Medium Reaction: RASH Medications lancets (ULTRA THIN LANCETS) 31 gauge misc Test daily 100 each 4 08/27/19 18 Active prazosin (MINIPRESS) 1 mg capsule Take 1 capsule (1 mg total) by mouth nightly 30 capsule 11 05/11/19 24 Active acetaminophen 500 mg capsule Take 2 capsules (1,000 mg total) by mouth every 6 (six) hours as needed for mild pain (pain scale 1-4) Active insulin lispro (HumaLOG) 100 unit/mL pen for injectionIndi cations:Type 2 diabetes mellitus with other specified complication, with long-term current use of insulin Inject 8 Units under the skin 3 (three) times a day before meals Patient to take 8 units of rapid acting insulin Humalog lispro before each meal if blood sugar is greater than 200. 24 mL 1 04/12/19 25 Active pen needle, diabetic 32 gauge x 5/32 needleIndicat ions:Type 2 diabetes mellitus with other specified complication, with long-term current use of insulin Use to inject insulin 4 times daily as directed. E11.9 400 each 3 07/12/19 25 Active insulin glargine (LANTUS) 100 unit/mL (3 mL) pen for injectionIndi cations:Type 2 diabetes mellitus with other specified complication, with long-term current use of insulin Inject 55 Units under the skin daily 51 mL 1 11/12/19 25 Active sertraline (ZOLOFT) 50 mg tabletIndicat ions:Moderate episode of recurrent major depressive disorder (HCC) TAKE 1 TABLET(50 MG) BY MOUTH DAILY 90 tablet 01/13/20 25 Active empagliflozin (Jardiance) 25 mg tabletIndicat ions:Type 2 diabetes mellitus with other specified complication, with long-term current use of insulin TAKE 1 TABLET(25 MG) BY MOUTH DAILY 90 tablet 01/13/20 25 Active blood-glucose sensor (FreeStyle Last 3 Plus Sensor) deviceIndicat ions:type 2 diabetes mellitus Use to monitor glucose levels continuously if glucose is greater than 250 or less than 70 or if how you feel does not match reading check glucose by fingerstick. Change sensor every 15 days. E11.9 insulin dependent 2 each 01/21/20 25 Active blood-glucose sensor (FreeStyle Last 3 Sensor) deviceIndicat ions:Type 2 diabetes mellitus with other specified complication, with long-term current use of insulin Use to monitor glucose levels continuously If glucose greater than 250 or less than 70 or if reading does not match how you feel. Change sensor every 14 days. E11.9, insulin dependent. 6 each 1 04/12/19 025 Discontinued(A lternate therapy) empagliflozin (JARDIANCE) 25 mg tabletIndicat ions:Type 2 diabetes mellitus with other specified complication, with long-term current use of insulin Take 1 tablet (25 mg total) by mouth daily 90 tablet 1 07/12/19 25 025 Discontinued sertraline (ZOLOFT) 50 mg tabletIndicat ions:Moderate episode of recurrent major depressive disorder (HCC) Take 1 tablet (50 mg total) by mouth daily 90 tablet 1 07/12/19 25 025 Discontinued Active Problems Problem Noted Date Diagnosed Date Leg swelling 07/11/2023 Assessment & Plan (07/11/2023 3:48 PM CDT): Bilateral leg edema few weeks etiology undetermined pain on palpating more anterior than posterior. No history of PE ultrasound bilateral legs were negative for PE. Patient ambulates without difficulty has no shortness of breath. He recently started elevating his legs he thinks this is benefitted him some. Left shoulder pain 07/11/2023 Assessment & Plan (01/28/2024 6:33 PM CDT): Patient failed 8 months ago was taken to emergency room he had DKA at that time patient thinks his fall was a year ago however his records reveal he had x-ray of his left shoulder in May of 2023. Patient was working on from an 8 ft ladder and fell on the left side hurting his shoulder and possible left knee.. Problem now he is about 40% range of motion of his left shoulder gives him considerable pain. Plans in his time get an x-ray of his left shoulder and refer to Orthopedics. X-ray results pending Depression 05/11/2023 Assessment & Plan (11/07/2023 5:50 PM CDT): Patient's mood is stable is not express any anxiety depression posttraumatic stress issues. It is his opinion that Zoloft has helped him considerably will continue this medication. PTSD (post-traumatic stress disorder) 05/11/2023 Diabetic ketoacidosis withou t coma associated with diabetes mellitus due to underlying condition 05/09/2023 Hospital discharge follow-up 01/02/2023 Assessment & Plan (01/02/2023 12:48 PM CDT): Hospital admission [facility] 12/28/2022 discharge 12/31/2022. Reason for admission was diabetic ketoacidosis patient had been out insulin for few weeks prior to his admission. Patient is back to his baseline function he is resume his previous dose of insulin 50 units of basal insulin daily and approximate 8 units of rapid acting insulin before each meal. HgbA1c 9.9/glucose 234 on admission 12/28/2022. Diabetic ketoacidosis withou t coma associated with type 2 diabetes mellitus 12/29/2022 Assessment & Plan (11/28/2024 6:42 PM CDT): Diabetes has never been in control past 8 years much of it related to compliance. Patient describes himself as being more compliant in routine eating habit is on 55 units of basal insulin he is taking 8 units of rapid acting insulin no changes were made until I see the updated HgbA1c for November of 2024. Previous HgbA1c 9.4 patient is getting his freestyle CGM reactivated has a new phone. Assessment & Plan (01/28/2024 6:35 PM CDT): Diabetes has improved he has about 7 days of data in his CGM came off I redid office phone right at 50% time in range does have about a 5% hypoglycemia. Patient is taking 8 units of insulin before meals rapid acting he is taking 55 basal insulin. No changes at this time review CGM in another week make recommendations. Patient's compliance in using his insulin has increased. Patient is given 4 weeks' supply of Farxiga 10 mg daily anticipate seeing some improvement in about 2 weeks. Assessment & Plan (11/07/2023 5:50 PM CDT): Diabetes out of control hemoglobin HgbA1c 10.1. Patient is out of Jardiance for several months. Not aware of this he did not contact me. Patient is taking 5 units of basal insulin daily. He takes rapid acting insulin 8-10 units sometimes twice a day sometimes 4 times a day. Does not give a ramp reason to his selection amount of insulin in terms of rapid acting insulin. His glucose is constantly elevated. Been without the CGM for several months. Plan resume CGM. Resume Jardiance see him back in 2 months discussed the details of his glucose pattern. Patient is encouraged to get an eye exam his foot exam today is normal Assessment & Plan (07/11/2023 4:03 PM CDT): Patient is here for follow-up visit diabetes continues to be out of control. He is taking 55 units of basal and sometimes 8 units of rapid acting Humalog sometimes 12 units with meals. Often times he is taking Namenda 15-30 minutes after his meal. His mealtimes a very inconsistent except for late evening meal. May eat 2 meals made 3 meals a day. Patient has difficulty answering questions directly he has been on Trulicity because of lack of availability I am not certain if he is taking SGOT2 product at this time. Patient's time in range been at 34 % very high for 4% low average glucose is 223 glucose variability 45.1. Patient is advised be consistent with his meal and consistent with taking his insulin in order to analyze best dosage for him. Patient not in control for past several years mainly influenced by depression and anxiety behavior difficulty with consistency on medications when and how to take. Encouraged this patient to keep follow-up appointment continue wearing CGM. Please answer the telephone call when we contact him for recommendations Left groin pain 04/11/2022 Assessment & Plan (05/20/2022 4:59 PM TUBE KNITTER): Patient did see the surgeon's nurse practitioner . Waiting for CT scan to be scheduled in follow-up with the surgeon. Assessment & Plan (05/07/2022 9:54 AM TUBE KNITTER): Concern for recurrent inguinal hernia to the left based on symptoms. We will obtain ct imaging to evaluate for this. Until then, we discussed continuation of avoidance of aggravating factors. We also discussed obstructive symptoms and to seek emergent medical attention. Assessment & Plan (04/11/2022 6:38 PM TUBE KNITTER): Patient is having lower abdominal pain near the site of previous surgery for hernia repair pain is increasing in frequency and intensity. Pain is only last a few minutes. Sometimes related activity. I will refer him back to general surgery for further evaluation Moderate episode of recurrent major depressive d isorder 12/06/2021 Assessment & Plan (11/28/2024 6:44 PM CDT): Patient does not complain of depressive symptoms as he has in the past he is now unemployed he is doing things in his environment around his house and property to allow himself to remain busy and meaningful. We discussed the fact he does have a reclusive nature he has always stay to himself and he is making attempts were making more contact outside of neighbors friends or general public. Continue sertraline 50 mg daily Assessment & Plan (07/11/2023 4:05 PM CDT): Patient no longer working for least last 6 months for while he was out of insurance he has no longer seeing a counselor. He has no longer seeing a counselor. And he is from a long time relationship with his girlfriend appears to be handling this. No medication requested non given at this time. Patient is certainly has admitted he is has posttraumatic stress issues. Is his opinion that he is improving slowly Assessment & Plan (11/01/2022 2:42 PM CDT): Patient is seen a counselor still has significant problems with follow through. Did not get his CT scan his abdomen complains of hernia symptoms. No show for appointments plastic surgeon complains of neuropathy symptoms these are expressions of his depression and posttraumatic is symptoms disorder. Advised to discuss with his counselor inability to follow through. Patient's describes only getting venlafaxine 150 mg daily contacted the pharmacy need for him to take 150 mg +75 mg which bring to a maximum of 220. This patient is not as depressed and disorganized as I have seen him on many occasions in the past Assessment & Plan (06/03/2022 6:28 PM TUBE KNITTER): Patient has had another emotional setback he has from his girlfriend. His biggest concerns that he is going to lose the family house. His house that the girlfriend is living in and he is living next door patient advised me he is since been homebound losing connection the time a day and day of the week. Missed appointments with the surgeon and CT scan and plastic surgeon. Advised patient that he needs a house had 1 time he enjoyed doing motorcycles riding. Advised him clean up his motorcycle start riding to break the cycle of being in the house. Needs to contact his mental health worker he was seeing at [facility] in his follow- up with Psychiatry. Assessment & Plan (05/03/2022 2:27 PM TUBE KNITTER): Patient is a barrier to follow through with the counselor. He did benefit with seeing a counselor advised him contact him again and discussed that 1 of his problems with his his anxiety depression is follow through. Assessment & Plan (04/11/2022 6:40 PM TUBE KNITTER): Patient is now 150 venlafaxine he is not seen in improvement. Increase his venlafaxine/Effexor to 225 mg daily however patient's is a bit more focus and communicating today I did call him at home empty left and he answered the phone this is important this patient previously not answer phone calls.. Has neglected phone calls was a part of his depression and behavior pattern. Patient is telling me after duloxetine/Cymbalta was discussed he is noticed some increase in his hand pain. 0 venlafaxine which he is on now and Cymbalta has been known to help people with neuropathy type pain Assessment & Plan (04/04/2022 4:48 PM TUBE KNITTER): Patient is on venlafaxine started on 75 mg last visit. He is not impressive is helped him. Further nurse who who is for me with him and myself can see a difference in his communication is more relaxed here to office. One patient's problems caring out activities answering the phone at this point him increase venlafaxine 150 mg daily. Assessment & Plan (03/07/2022 5:21 PM TUBE KNITTER): Depression remains a big problem. Several times a week he has a just force himself to get out of bed. Patient has the desire be motivated return to work remain active. This is a big task for him at this time. Discontinue Cymbalta. Start venlafaxine/Effexor 75 mg daily no improvement in 7 days double the dose. See him back April 04. Assessment & Plan (02/05/2022 4:59 PM CDT): Patient still having significant depression. He has an appointment with the therapist this [facility] psychological services tomorrow he plans to follow through keeping the appointment. Lot of depression not posttraumatic issues. Patient is not getting out house very much is not been work. Will continue Cymbalta at this time Assessment & Plan (12/06/2021 5:07 PM CDT): Patient has noticed some improvement with Cymbalta 60 mg daily. States he missed the medicine for few days of was a change in his mood. Patient has difficulty staying focused in conversation of the topic at hand is concentration issue in some anxiety. Reason visit this in the next this is to come. Will talk about better manage his diabetes on his visit in 8 days. Will remain on Cymbalta 60 mg daily. Myalgia 11/11/2021 Assessment & Plan (11/11/2021 11:53 AM CDT): Patient presents with c/o myalgias, weakness, and nausea. He reports feeling unwell since last week. He works in the heat and has had issue with not tolerating well in the past. He reports he is trying to stay hydrated, but unsure if he is. He denies any associated fever or chills. His covid and flu testing were negative. He is a diabetic and compliant with medication, but does not monitor diet or blood sugar at home. Based on this have recommended labs today to look for any dehydration, muscle injury or electrolyte disturbance. We will take him off work for the rest of the weak as unable to safely complete tasks of his job. He will return in one week for recheck or sooner if needed. Feeling exhausted 04/11/2021 Assessment & Plan (04/11/2021 2:11 PM TUBE KNITTER): Patient is 52 years old he works as a maintenance millwright and factory. He can no longer consistently new greater than 12 hour shifts. He has a lot of body aches and pains increased up to 12 hours a continues working on a job S concentration is poor. Letter is written limiting him to 12 hours work shifts. Employment problem 11/05/2020 Assessment & Plan (01/31/2021 10:41 AM CDT): Patient has had a prolonged absence from work, since the beginning of July. He struggled with post surgical complications, orthopedic issues and PTSD. He has reportedly been cleared by ortho and surgery to return to work. He is now seeing a counselor at [facility] and will continue to do so. He appears at this time to be be physically able to return to work and mentally he states he would like to try to return to work. There is concern that once returning to his mentally and physically demanding job that he will have exacerbation of ortho issues and PTSD. Patient however, voices he would like to try, we will send release. If issue occurs patient was instructed to call us immediately. At that time we would need to consider detention or permanent disability for this patient. Assessment & Plan (11/05/2020 7:18 PM CDT): Patient's several forms that need to be referred filled out for his employment. He has been off work since around July 05. Problems begin regarding abdominal pain his job involves a lot a heavy lifting he is in the building maintenance capacity. He had a hernia repair June 2019. Return to work but still has some abdominal pain the time his problems became in developed urological problems. Major problems urinating requiring laser surgery for his prostate.. This has improved. Age 60 having previous hernia surgery in the past 18 months along with a prostate issue the physical demands caused him considerable amount of discomfort and but and interfered with his ability to work. Patient in addition this has bilateral shoulder pain that he has been fighting through. He had impingement surgery done on right shoulder in the past. Has symptoms now the symptoms very her with amount of physical labor required. Patient has significant neuropathy in his right upper extremity. He has had carpal tunnel surgery on the right hand in the past. And has upcoming appointment with his plastic surgeon to re-evaluate this problem.. The forms that he is brought in for his employment referred to being off work since October 2020. He will check back with with his employer to make sure what dates need to be covered. He also was given considerable time off from his Urology following surgery before he could return to work. Patient is requiring a about get FMLA forms filled for his ongoing health problems. Posttraumatic stress disorder with delayed expre ssion 11/05/2020 Assessment & Plan (05/15/2023 12:42 PM TUBE KNITTER): Patient recently admitted to the hospital diabetic ketoacidosis diagnosis. He is lost his job he is now on public aid. He had a psych consult while in the hospital he is now taking Zoloft and prazosin from mental health he has a follow-up with the [facility] here in [place] for his mental health. Assessment & Plan (06/22/2022 6:20 PM CDT): Patient missed his appointment by week regarding CT scan of his abdomen. And impression was next week also misses appointment plastic surgery because of his hand problems patient's executive function problems which is probably related his posttraumatic stress will get new appointments emphasize he keeps her appointments. Waiting forms from his long-term disability be filled out. Assessment & Plan (06/10/2022 4:45 PM TUBE KNITTER): Patient is seen on the one-week ago . Did follow through in seeing the counselor [facility]. And he has made an appointment for his CT scan of his abdomen be done.. Patient is somewhat perplexing as information on how to go about hearing information on upcoming forms for long-term disability.. You with his his health problems which is 1 depression, posttraumatic stress cough neuropathy both hands diabetes and abdominal pain which is uncertain etiology and chronic. At this time awaiting the forms come in so that can be filled out. Advised long-term disability from an [employer] usually 2 years however this is a very good chance can make a recovery returned to work before the 2 years over. Assessment & Plan (05/20/2022 4:58 PM TUBE KNITTER): Patient advised me he is begin to discuss some his posttraumatic problems with family patient will be following through on his counselor on further help in this matter. Assessment & Plan (05/03/2022 2:27 PM TUBE KNITTER): Patient continues have difficulty with following or completing task. With respect his health. Assessment & Plan (03/07/2022 5:27 PM TUBE KNITTER): Patient continues to see counselor regarding posttraumatic problems finding low bit easier to discuss things. Assessment & Plan (02/13/2022 6:16 PM TUBE KNITTER): Patient did see a therapist.. He is recognizing more factors/expressions of his posttraumatic stress. Patient's more open discussing problems. Has expectations are getting better he has very positive attitude. Patient will continue therapy counseled Assessment & Plan (12/06/2021 5:12 PM CDT): Patient's getting counseling from [facility] . Patient needs to continue this therapy his girlfriend's father just age 90. Patient's upset upset because the time between diagnosis from metastatic cancer and was 2 weeks. Assessment & Plan (11/22/2021 10:30 AM CDT): Patient remains on Cymbalta and is tolerating well. He however, continues to struggle psychologically as history of PTSD. He had done counseling in the past and have encouraged him to resume. He is agreeable. Will provide list of providers in area. Will re-evaluate at next visit or sooner if needed. Assessment & Plan (10/02/2021 6:54 PM CDT): Patient is made known the past his lot of anxiety I did not appreciate how much anxiety he has had. Social anxiety goes work moist people to some extent. Anxiety is affect his diabetes he has a cell phone he has the CGM strips at his cellphone will repeat give results. Her patient will use a cellphone 1 even answer cell phone even though he has a his anxiety is did pallavi in him following through on doing he sings. He is on Cymbalta which helps with muscle pain back pain and neuropathy time increase his Cymbalta to 120 mg per day and may help him. Assessment & Plan (04/23/2021 9:38 AM TUBE KNITTER): Patient did meet with a counselor twice a did help him he needs to continue to follow-up. Assessment & Plan (01/31/2021 10:42 AM CDT): Patient has known PTSD post surgical complications and issues at work. He is now under the care of a counselor. We discussed the possibility of psychiatric services as well. Patient will discuss this further with his counselor at his upcoming visit. Assessment & Plan (12/04/2020 4:58 PM CDT): Conflict with 1st appointment patient will follow counseling his mood is improved but he recognizes he would benefit from counseling. Assessment & Plan (11/05/2020 7:22 PM CDT): Patient overwhelmed with posttraumatic stress that he has stuff inside for 25 years. Is tearful in office stuttering very difficult speech because of emotional turmoil associated with the event. When his triggers is a he recently saw the individual responsible for the events of his trauma. This patient is emotionally very bothered by this event is repetitive thinking at this time is not stable enough to return to work. I am referring him to [facility].. He has discussed this with 4 other people in his life regarding the posttraumatic problems. He did not going to great details about a handout intake was necessary from median all the details. No medications given. Patient's sure me he is not a risk to harm himself or anyone else at this time. Did feel a sense of relief in expressed recognizing the affects of the trauma on him. Benign prostatic hyperplasia 08/16/2020 Overview (08/16/2020): Added automatically from request for surgery [id number] Chronic joint pain 05/17/2020 Assessment & Plan (11/07/2023 5:52 PM CDT): Multiple joint pains in his left shoulders hurting him the most. Was referred to physical therapy is very unclear whether not he really benefitted from physical therapy or was compliant in keeping appointments. X-rays colitis as well as loose bodies in the joint space. Need to refer to Orthopedics. Patient prior to taking his depression medicine on routine basis was very poor with respect to compliance in keeping appointments with specialists. Much more stable question arredondo at this time Assessment & Plan (04/11/2021 1:55 PM TUBE KNITTER): Patient having a lot of pain in his right hip even with sitting and right knee pain on palpating over right buttocks and right hip. Hospital bursitis possible osteoarthritis request x-ray of his right hip. Assessment & Plan (05/17/2020 4:37 PM TUBE KNITTER): Patient been head chronic joint pains for years bilateral hands knees hips.. None this is getting better. He is 59 years old he does a physical demanding job. He describes more difficulty in keeping pace with his job because of pain decreased. In my medical opinion just a matter of time before he becomes does able not to continue doing his job safely.. Patient describes difficulties sleep secondary to joint pains. History of heat exhaustion 12/08/2019 Assessment & Plan (12/08/2019 12:53 PM CDT): Patient's recently in the hospital ER for heat exhaustion he has had this on several occasions over his working career.. 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 Last week were keep felt overwhelmed could not breathe his went to emergency room fast he was Dehydrated. Patient has return to work is very close back to his normal self at this point. Encounter for preventive health examination 05/07 Assessment & Plan (11/28/2024 6:47 PM CDT): History and physical completed patient's health risk assessment health maintenance reviewed and addressed. Patient has multiple chronic health problems predominantly concerned this time his diabetes. So needs to have a left shoulder repair/surgery. Depression appears to be stable at this time. Patient needs to have a PSA, CT lung scan screening. Last colonoscopy was 2013 patient has agreed to follow through on above recommendations Assessment & Plan (11/07/2023 5:58 PM CDT): History and physical completed patient's health risk assessment health maintenance reviewed and addressed. Request for hepatitis B and C screening requested. Patient's mood and depression has improved compared to last visit and last 2 years. Assessment & Plan (12/06/2021 5:05 PM CDT): Preventive health exam. Patient did have a colonoscopy 2013 which we discussed next 1 is due in 2 years patient's multiple health problems predominant that of diabetes, neuropathy depression. Shingles vaccine record will discuss on next visit as well. Assessment & Plan (12/08/2019 12:52 PM CDT): Strong family history of colon cancer patient is due for colonoscopy. Referral made it his request for a colonoscopy Assessment & Plan (05/18/2019 4:27 PM TUBE KNITTER): History and physical completed health risk assessment addressed patient's multiple health of mainly his diabetes inguinal her as well as neuropathy as well as some traumatic arthritis problems.. Laboratory studies studies today focus on diabetes at this time. Patient declined flu shot. Shingles vaccine will discuss on . Bilateral hand pain 05/18/2019 Assessment & Plan (05/20/2022 4:51 PM TUBE KNITTER): Patient has a appointment with the plastic surgeon on May 30, 2022 evaluate what can be done for his hand problems. 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 He is had carpal tunnel surgery x1 been a diabetic over 10 years mainly in poor controlled. I am refer him to Plastic/hand surgery to sort out what is best for him his diabetes has improving. Do not know if he is a surgical candidate /carpal with respect to his hand problems. Assessment & Plan (12/04/2020 4:59 PM CDT): Patient is a upcoming EMG nerve conduction study an appointment with hand surgeon coming up in the next 2 weeks.. Is having difficulty lifting and pulling with his hand secondary to neuropathy symptoms. He is off work at this time. 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 He has upcoming appointment with his plastic surgeon previously did his carpal tunnel repair. Assessment & Plan (12/08/2019 12:51 PM CDT): Patient's numbness and burning in the right hand least park his hand feels normal is distal in of his index finger. Patient has carpal tunnel surgery in 2011 this pain is reminding of similar symptoms.. Patient is at this time does not want have any test on his hand. He advised me he has done a lot of wear and tear on his hands during labor work physical work at his job. Assessment & Plan (08/16/2019 4:35 PM CDT): Patient continues to have right hand pain. He is going to call Dr. Syed . Previous leg carpal tunnel surgery July 2011 Assessment & Plan (05/18/2019 4:28 PM TUBE KNITTER): Chronic right hand pain with difficulty with gripping things at times previous surgery by Dr. Esparza . Patient is requesting referral which I concurred is a very good idea he will contact the physician regarding the date Neuropathy 06/28/2018 Assessment & Plan (05/03/2022 2:27 PM TUBE KNITTER): Medication changes no significant improvement in neuropathy at this time Assessment & Plan (04/11/2021 2:09 PM TUBE KNITTER): Patient having neuropathy symptoms both hands right worse than left he advised me this summer he was having a EMG nerve conduction study done and the neck [place] off physician discontinued doing a because of patient reactions during the test. He was under care of hand surgeon who had discussed in the future getting a surgical procedure. At this time this is on hold. Assessment & Plan (11/05/2020 7:19 PM CDT): Patient's continues have some neuropathy in both hands and feet Assessment & Plan (05/17/2020 4:24 PM TUBE KNITTER): Patient continues to have some neuropathy in his hands and feet. Assessment & Plan (12/08/2019 12:53 PM CDT): Patient continues to have hand and hip pain Assessment & Plan (05/18/2019 4:27 PM TUBE KNITTER): Patient continues to have neuropathy symptoms in his hip lower leg. Also has had problems with his right upper extremity in terms of neuropathy for several years. He has also symptomatic with more pains hand referral back to orthopedic surgeon Dr. Esparza. Assessment & Plan (06/28/2018 1:29 PM CDT): Patient's history of sciatica in his history of neuropathy describes sciatica several times a week right lower extremity. Patient was given Cymbalta 60 mg per day to take. Trauma 06/28/2018 Assessment & Plan (06/28/2018 1:29 PM CDT): Patient a drill drop on his foot injured his left 3rd toe x-rays were negative for a fracture. Patient was given Tdap. Chronic right hip pain 08/19/2017 Assessment & Plan (05/15/2018 7:38 PM TUBE KNITTER): Patient's chronic right hip pain he has had hip replacements he has been advised by the orthopedic surgeons nothing else can be done last hip replacement was 2008 certainly has advanced DJD. Been doing labor work for 25 years. Assessment & Plan (08/19/2017 2:13 PM CDT): History right hip replacement 1 year following right hip replacement he had to get it done again because he knocked out of place. He has now been having pain about 6 months patient follow-up with his original orthopedic surgeon. Patient has a history of bilateral knee replacements obviously has DJD diffusely. In addition is he does very physical labor work. Type 2 diabetes mellitus with other specified co mplication 12/16/2016 Assessment & Plan (11/07/2023 5:48 PM CDT): History and physical completed patient's health risk assessment health maintenance reviewed and addressed. Patient is encouraged to get his 2nd shingles vaccine for hepatitis-B and hepatitis-C requested.. Assessment & Plan (05/15/2023 12:43 PM TUBE KNITTER): Patient is here hospital follow-up recently admitted to hospital for DKA remain in hospital 3 days. Medication reconciliation completed. Patient no distress at this time. Was last seen by me December 27, 2022. His HgbA1c was 10.8 /glucose average is 253 on May 09, 2023. He has no longer taking Trulicity, or Glyxambi. He is taking basal insulin 55 units once daily and rapid acting insulin b.i.d. 12 units. He is very inconsistent with mealtimes. I gave this person a CGM freestyle Last will see him back in 10-14 days to review the results. This patient has not been in good control because of compliance . Will resume Farxiga on follow-up visit. Assessment & Plan (01/02/2023 12:51 PM CDT): See notes regarding hospital follow-up for the date of 12/28/2022-12/31/2022. Patient has a history of noncompliance terms of taking his insulin routinely and making adjustments as directed. Patient is given a new CGM sensor today will monitor this in the next few days.. Has resume taking his insulin 50 units of basal insulin approximate 8 units before each meal.. Patient this time has no insurance. Does have insurance card to helps with his medications. Assessment & Plan (11/01/2022 2:42 PM CDT): Diabetes in poor control. Rarely taking mealtime insulin. Ambulatory glucose profile so 94% active use. Time in range 17%,.low range 0 ,very high range 68% and high range 15%. Missing dose of insulin including his Trulicity as well. Advised to increase compliance follow-up visit in a few weeks Assessment & Plan (06/22/2022 6:21 PM CDT): Patient's new stress and his glucose levels have regressed will continue to monitor patient and encouraged he follows a diet specially eating meals on time and take his medications Assessment & Plan (06/03/2022 6:28 PM TUBE KNITTER): CGM is reviewed more stability in his CGM pattern glucose level is 211. Glucose variability is 36. Hypoglycemia. New recommendations at this time this is a tremendous improvement over 6 months ago in 4 months ago. He is eating meals on a more routine basis. Check HgbA1c today. Assessment & Plan (05/20/2022 4:50 PM TUBE KNITTER): Patient making some improvement his diabetes management glucose variability has improved patient's time in target 45% no hypoglycemia at this time. Reviewed the CGM report with patient problem his glucose is going up in evening around 9:00 a.m. in seeing a most of the night advised me increase his Humalog p.m. dose 8 units. Patient was able to get Trulicity in the last 2 weeks at 1.5 mg once a week. 3 mg isn't available at this time. I will in the future increase the Trulicity to 3 mg. Assessment & Plan (05/03/2022 2:26 PM TUBE KNITTER): Patient did follow through in see the data warehouse manager he has a better understanding and comfort in terms of selection of food and eating pattern. Patient's CGM does show an improvement. In early March his time in ranges 27%. His current time in range is 47% previous glucose average was 244 current glucose average 197 significant improvement. No significant hypoglycemia only 1% however glucose variability no significant change 30% in the past 40% now.. No changes in medications anticipate will get further improvement as he becomes more clean it with eating patterns. Small possible he will returning to work in the near future will makes him other recommendations regarding his insulin management. Assessment & Plan (04/11/2022 6:36 PM TUBE KNITTER): One-week follow-up visit regarding diabetes. His CGM report continues to show some improvement with respect to decrease in glucose level previous glucose levels to 30s now 200 % of her target ranges 42% he did have 2% low range no very low range. Patient's pain close attention to his eating I was able to get him appointment with data warehouse manager for April 21, 2022.. This time making no further changes on his diabetic management until he sees the data warehouse manager.. Assessment & Plan (04/04/2022 4:52 PM TUBE KNITTER): Patient's diabetes is improved. Comparing his 2 week average on his CGM reflects that his most recent average was 217 (March 22-April 04) previous 2 week average was 264 prior to that the average was 286. Obvious evidence of improvement plans patient's remain on basal insulin 55 units daily. He is taking high-dose sliding scale guidelines for mealtime Humalog dosing patient to have 2 meals a day. Patient has not been answering her phone which is part of his anxiety psychological depression make up.. In agreement that I would text him a message saying blood sugar . This message means he is a call office for further instructions. See him back in 1 week. Assessment & Plan (03/07/2022 5:24 PM TUBE KNITTER): Diabetes sleeps a lot of room for improvement he has improvement. Last 2 will be replaced with the Last 3 sample. Patient's difficulty caring out the task of scanning 4 times a day. Three will relieve this problem. Is identified improvements with rapid acting insulin along with his basal insulin he is trying to eat 2 meals a day and not a lot of snacking in between. Patient does not have Trulicity available secondary to shortage of the medication. Notice a difference in his appetite without Trulicity. Patient has a taking insulin multiple times today's on basal insulin 55 units he is on a sliding scale higher dose of rapid acting insulin take as much as 18 units per meal. Patient most recent CGM shows he is in the very high range 49% of he is on target 27% of he has 1% low range his GMI is 9 point average glucose 243 and glucose variability 40.6. The new Last 3 hour view to monitor him closer will contact him in 4 days on any additional changes on his management.. Submit to his insurance company for him to get CGM Last 3 Assessment & Plan (02/13/2022 6:23 PM TUBE KNITTER): CGM results are not good. Time inactivity 42%. Time in range 5%, time in very high range 61% no hypoglycemia. Average glucose 279, glucose management indicated 10.0, glucose variability 24.9%. The following changes are made regarding his diabetic management. He is to take 54 units of basal insulin once daily. Sliding scales stab I does. Starts with a glucose 151 requires 4 units of insulin per meal, titration is up to 12 year meal glucose is above 350.. His has a habit of snacking most of the day and 1 large meal. Will at this time is for him to eat 2 meals per day and discontinue snacking. Patient's stop glimepiride. Patient's call me in 1 week to review CGM changes. Does of patient's post traumatic stress he has not been answering his phone to received instructions on changes in diabetic management. Election time he has been getting a lot of calls on the phone regarding leg nicole the 40 did answer. Patient recognizes his depression has affected his diabetes management. Is depressed over having a diagnosis of diabetes and did not accept responsibility necessary to establish good diabetic care/compliance with medication recommendations in diet.. Patient will contact the data warehouse manager again referral has been made. This gentleman 6 weeks I will be communicating with him within the next 8 days Assessment & Plan (02/05/2022 5:03 PM CDT): Patient now has a phone compatible with freestyle Last. Did apply the Last 2 today's visit I will see him back in 2 weeks. Will look into problem prescribing for him Last 3 which will limited to need scanning 4 times a day. I went over details regarding and use arising CGM. Patient will follow-up with data warehouse manager regarding dietary habits. Patient's neuropathy for years difficult to tell how much is traumatic. Last HgbA1c was 10.1 September 30, 2021 is taking Trulicity 1.5 mg once per week, halfway 55 units daily, Jardiance 25 mg daily and glimepiride 1 mg daily. Obviously with the use a CGM can better adjust his medications and get better control of diabetes Assessment & Plan (12/13/2021 5:03 PM CDT): Patient is scheduled for CGM placement. He went to get a new phone and the document management technician assisted him with this phone and advised him that he could download freestyle Last on his current phone. However this is incorrect the system that he downloaded was not the current freestyle Libre2. Patient did not bring his glucometer you reports his sugars running in the 200s. Having less symptoms of hypoglycemia he is eating 3 times a day. At this time plans get a new phone in January. Advised him to wait before we apply CGM. In January freestyle Last 3 will be available and probably compatible with the new phone he plans to get this will offer an advantage of not having the scan repeatedly throughout the day. Have no other recommendations at this time. Assessment & Plan (12/06/2021 5:11 PM CDT): Diabetes in very poor control patient is now willing does get a CGM will follow- up with me in 8 days to for CGM placement he will get appropriate phone on tomorrow on that will be compatible with his CGM. Has been checking glucose randomly. Even more important he has no routine meal pattern other than eating a large meal was somewhat between 8:00 a.m. and 10:00 p.m.. May go 8-12 hours during the day without an adequate meal.. Advised him definitely against this he is describes some symptoms that could be hypoglycemia. Instructions on today's date eat 3 meals a day. He is on GLP 1 Trulicity . Has disc discovered that he can eat is much. Patient's advised that this is probable Trulicity causes 1 to feel full as well as longer retention food neck cut. Patient has been taking 3 mg once a week of Trulicity I want to go to 1.5 which he has samples of he states he has diarrhea but in further discussion he may have some loose stools but not actually diarrhea. Will get a hemoglobin HgbA1c today he will return in 6-8 days for CGM placement. Patient's advised glucose in the morning before he has a and before his evening meal and any time he feels a. Given a new 1 test glucometer and 30 strips/samples Assessment & Plan (11/22/2021 10:28 AM CDT): Patient has been a very difficult to control diabetic d/t compliance with testing. He takes medication as directed, but does not test as he should. Typically glucose is high, but on last labs blood sugar was 87. He has had physical symptoms of arthralgias, myalgias and fatigue. Uncertain if related to glucose, but monitoring is needed. He is interested in a CGM and may be a good candidate. We will plan to set him up on freestyle trial prior to next visit with Dr. Muñoz. He will remain off work until that visit. Assessment & Plan (10/02/2021 6:55 PM CDT): Diabetes poor controlled patient does not utilize instruments to help him mainly a glucometer readings are CGM. I am going to a BMP hemoglobin HgbA1c today make adjustment his insulin and encouraged him to next step in check and self closer. Understands multiple side effects come from diabetes. Assessment & Plan (04/23/2021 9:38 AM TUBE KNITTER): Diabetes in poor control. Patient admits he has been into now a consequence of diabetes and affect on his body. He also admits his eating habits of very poor he eats a lot of chocolate especially chocolate cookies at this time this gentleman is advised he needs to utilize the CMG monitoring his glucose. I convinced him he can get the arm band the will probably keep CMG connected to his body. since his job is physically demanding. Once he starts utilizing the CMG is get appointment with me in 2 weeks will analyze anemic adjustments in his treatment regiment. Patient's last HgbA1c this month was 11.0 his best HgbA1c in the past 2 years 8.5. He has a CMG at home he needs to located as well as the scanner. Assessment & Plan (04/11/2021 1:54 PM TUBE KNITTER): In out of Trulicity x2 weeks. I gave him samples of Trulicity will last him in a for 2 days hopefully he will get the medication from the pharmacy in the next few days. Check hemoglobin HgbA1c and adjustments accordingly. Urine for microalbuminuria and lipid profile requested. Assessment & Plan (12/04/2020 5:01 PM CDT): Diabetes not controlled talk with this patient he is off work burning of less calories could he is not as active. He is also bored is lifestyle eating is not helping him at all. Plans at this time he increase his Trulicity 3 mg once a week by taking 2 of the 1.5 dosages next this Thursday he has no side effects out sent a prescription for 3 mg of Trulicity. Patient does not want to go on insulin this time. Hemoglobin HgbA1c was 10.3 in the past 30 days Assessment & Plan (11/05/2020 7:23 PM CDT): Patient's diabetes not controlled and it was my intention today to address the diabetes. Will contact this patient a few days and make recommendations. HgbA1c is 10.3 however in great emotional term all secondary to posttraumatic stress. And also concerns regarding his employment. Today was not today to give instructions regarding changes in his diabetes treatment. Assessment & Plan (09/20/2020 4:12 PM CDT): Patient reports a glucose numbers running between 110 and 140 most of the time he did not bring his meter today. He has lost about 24 lb from a year ago is 10 lb in the last 60 days.. Previously on Trulicity to 4.5 mg per week his refill will be at 1.5 mg. Will get a follow-up HgbA1c in a few months consider reducing his basal insulin and discontinuing his glimepiride Assessment & Plan (08/20/2020 1:59 PM CDT): Patient glucometer readings indicate patient has improved significantly with this diabetes. His glucometer reading ranges from 120 to 160. Previous readings his glucometer readings worse consistently in 300 range. I have no new recommendations at this time. See this patient back in 1 month reviewed his glucometer readings.. Assessment & Plan (07/24/2020 5:25 PM CDT): Hemoglobin HgbA1c returned at 10.3/glucose average of 249. Patient had is Trulicity increased to 4.5 mg once a week. We can patient's glucose running in the 500s. The last 2 days his glucose running between 272 -301 range. Patient's advised the 3 meals a day he has been eating 1 meal and snacking all day a lot of his chocolate. He stay on his Trulicity 4.5 which is just started in the past 5 days. Patient's check fasting glucose and a 2 hour postprandial. He is call me 2-3 days with results. Anticipating mealtime insulin is going to become necessary. Assessment & Plan (07/20/2020 1:00 PM CDT): Patient's glucose continues to run high time he had a 500 this morning on his meter. Accuracy the meters unknown. Will recheck HgbA1c today. Changes Trulicity to 4.5 mg once a week. Assessment & Plan (05/17/2020 4:24 PM TUBE KNITTER): Patient's hemoglobin HgbA1c is 10.3 well controlled patient's on basal insulin 55 units daily Trulicity 1.5 mg. Plans at this time increased Trulicity 3 mg once a week and he tolerates his go up to 4.5 mg once a week. Patient will continue on Jardiance. Sees patient back in 4 months. Progress report in about 3 weeks a tolerating the Trulicity as well as considering adding mealtime insulin. Patient recently had a eye exam was advised no diabetic damage at this time.. Assessment & Plan (12/08/2019 12:50 PM CDT): Patient's hemoglobin HgbA1c 11.4/glucose average 284 most recent HgbA1c 8.5/glucose average 197. Plans at this time add glimepiride 1 mg daily. Patient's continues with the Jardiance 25 mg daily and basal insulin 55 units daily. Assessment & Plan (12/17/2016 2:46 PM CDT): Diabetes is worsening. Reminded to bring in blood sugar diary at next visit. Dietary recommendations for ADA diet. Regular aerobic exercise. Discussed ways to avoid symptomatic hypoglycemia. Discussed sick day management. Discussed foot care. Diabetes will be reassessed in 1 month. Patient's stop checking his glucometer of readings several months ago since his last visit with me. On his last visit his hemoglobin HgbA1c was 6.5 and he was doing very well. He understands his sugars been running high he has checked his glucose the last 2 days 300 range yesterday and today prior to going to work he had a range of 400 glucometer reading. He went to medical totally was not feeling well and is advised to see me immediately. Patient is advised continue 20 units of basal insulin. Is on Lantus. I gave him samples of NovoLog/aspart rapid acting insulin. Is given instructions on how to start sliding-scale I dose range, a preprinted instruction sheet on this. Patient understood this prior to leaving see me 2-4 weeks. Left leg pain 12/16/2016 Assessment & Plan (01/28/2024 6:33 PM CDT): Left leg pain patient is uncertain of details has realized left needed bothersome he knows he fell off a ladder 8 ft tall several months so ago close to 8 months ago. Potentially he could have injured shoulder that time his memory is very vague regarding the events. Now has persistent left knee pain with walking as well as standing. X-ray results pending Assessment & Plan (12/17/2016 2:48 PM CDT): Patient jammed his left tibia about 6 weeks ago evidence of abrasions of apparent. He still has some pain there with standing he works long hours standing on his feet daily. X-ray of his lower leg/tubular fibular were negative other than the previous prosthesis from a knee surgery. Naprosyn is 2-4 his lower extremity pain. Left foot pain 12/16/2016 Assessment & Plan (08/19/2017 2:12 PM CDT): Chronic left foot pain patient may have a bone spur on his 5th metatarsal referred to Podiatry. Resolved Problems Problem Noted Date Diagnosed Date Resolved Date Mild protein-calorie malnutrition 12/31/2022 05/11/2023 Dark urine 11/22/2021 03/07/2022 Difficulty urinating 08/06/2020 021 Suprapubic pain 07/06/2020 12/06/2021 Assessment & Plan (04/11/2021 1:55 PM TUBE KNITTER): Patient's suprapubic pain is resolved. Assessment & Plan (09/20/2020 4:09 PM CDT): Patient's suprapubic pain has improved he recently had had prostate surgery for BPH symptoms. At this time he is on a 10 lb weight restriction for lifting and pulling. Advised in the contact Urology Department regarding duration of this restriction. Patient still has some residual suprapubic pain he relates his some of this discomfort following his hernia surgery in June of 2019. He still off work given his weight restriction from Urology. Assessment & Plan (08/20/2020 1:59 PM CDT): Patient continues to have some abdominal pain and is a sounds like some occasion constipation.. He did see Urology has thickening of bladder wall he is scheduled for surgical procedure on September 06, 2020 Assessment & Plan (07/20/2020 1:02 PM CDT): Patient ultrasound of his abdomen pelvis was negative his PSA levels were normal. He continues to have suprapubic pain is having increased difficulty urinating. The time he has sit not urinate problem bowels in terms of initiating bowel movements. Refer to urology because of persistent problems with urination and suprapubic pain. Assessment & Plan (07/06/2020 11:08 AM CDT): Patient has suprapubic pain lower pelvic pain he was doing some heavy lifting he has a very physical job. He has been having problems urinating for last few months he has sit down to urinate he is incomplete emptying his slow stream. Dot detect a hernia on exam of his pelvis. Plans at this time get a UA pelvic ultrasound PSA. Patient is limping when he walks because the the pain is lower pelvis. Remain off work please through the 08 of July.. Anticipate having pelvic ultrasound report back in the next 24 hours to discuss next plan of action. Bilateral inguinal hernia wi thout obstruction or gangrene 06/14/2019 08/16/2019 Overview (06/14/2019): Added automatically from request for surgery [id number] Umbilical hernia without obs truction or gangrene 06/14/2019 08/16/2019 Overview (06/14/2019): Added automatically from request for surgery [id number] Recurrent umbilical hernia 05/27/2019 0 12/08/2019 Assessment & Plan (05/27/2019 8:52 AM TUBE KNITTER): Will have simultaneous repair with TEP R. The procedure was explained to the patient to which he agrees. Same restrictions post surgery. Inguinal hernia without obst ruction or gangrene 05/18/2019 08/16/2019 Assessment & Plan (05/27/2019 8:55 AM TUBE KNITTER): High risk patient with uncontrolled diabetes, last a1c in the last month was 10.4. he also smokes 3/4 pack per day. bmi is within range. He is not on blood thinners. Will have CT evaluation to determine extent of right inguinal hernia. If bowel involvement will procedure with TEP and umbilical repair with mesh. The procedure along with the risks, benefits, and post operative period were discussed with the patient, as well as the risks of complications if he does not quit smoking or control his blood sugars. Case will be discussed with surgeon after CT results. Assessment & Plan (05/18/2019 4:30 PM TUBE KNITTER): Patient's hernia femoral/inguinal hernia that is progressively getting larger this been present least 6 months he has not been seen for 10 months patient did not bring this to my attention. Patient is given information regarding hernia referral to general surgeon. After visit we contact him advised he has have limited due to of 70 lb weight weight lifting restriction for the next 7. At this time he will see to general surgeon and follow their directions regarding any restrictions. Right foot pain 01/22/2017 07/11/2023 Assessment & Plan (01/22/2017 6:00 PM CDT): Pain right 1st metatarsal for least 3 weeks no redness no swelling pain is constant worse when standing. X-ray right foot excluded compression fracture. Uncontrolled diabetes mellit us type 2 without complications 01/22/2017 12/08/2019 Assessment & Plan (08/16/2019 4:33 PM CDT): Patient's diabetes not controlled his HgbA1c is 11.4 equivalent took glucose average of 280. Plans at this time is add Jardiance 10 mg per day patient is presently taking 55 units of basal insulin per day as well as Trulicity 1.5 mg once a week. Patient has not followed up to sees dietitian advised me he knows he is eating raw foods. At this time he is going to take to joints give me a call in 1 month to tell me when his glucose average. Gave month of 30 day supply of samples of Jardiance. Foot exam was completed patient's advised need to get his diabetes control controlled prevent long-term complications Assessment & Plan (05/21/2019 3:16 PM TUBE KNITTER): Patient's HgbA1c return to 10.4 This is a glucose average of 252 I had this patient come back to start him on GL P 1.. Discontinuing Glyxambi which is a DPP 4 and SGOT 2 inhibitor combined. Review with this gentleman make sure he understood the side effects from Trulicity. He has no history of pancreatitis no family history of thyroid cancer. Patient's referred to diabetic teaching he needs to go over diet. And he he did inject himself with Trulicity 0.75 mcg here in office. Advised him we going to given 2 doses this over 2 weeks and then go to 1.5 dose also explained to him his insurance may not cover this brand but he should cover some brand of GL P 1. A like not to have to increase his insulin given his weight and and body mass index of 31.24 backing control with GL P 1 SGOT 2 in minimal insulin this would be best for this patient. Assessment & Plan (05/18/2019 4:36 PM TUBE KNITTER): Diabetes not in good control hemoglobin HgbA1c is 10.4. June of 2018 his HgbA1c was 10.3. Patient medications include Glyxambi 10-5, 1tablet basal insulin Toujeo 55 units daily. Patient did not tolerate metformin.. Plans at this time discontinue glyanbi . Replaced GL P 1, Trucility samples will be made available.. Some point future may reintroduce SGOT 2 product.. See this patient in next few weeks after starting a GL P 1 product. Assessment & Plan (06/28/2018 1:31 PM CDT): Patient is given the continues glucose monitor freestyle Last however he got contaminated with oral at work after approximately 2 days he did not contact me a try to see if it was still work. He brought his glucometer readings have still high.. His are last hemoglobin HgbA1c was 10.3 last month.. At this time I wrote a prescription form to get a sensor. for the continues glucose monitor. He is to contact me if this does not work. Showed him ulnar computer very is method is in which he can covered sensor at work. He will be talking to me in the next 2 weeks and I will see him in the next few months. Assessment & Plan (05/15/2018 7:37 PM TUBE KNITTER): Diabetes not controlled patient has missed appointments since compliance is not been good his HgbA1c is 10.3 in November was 9.1 patient is taking basal insulin 50 units today ankle exam be 10 per/5 1 tablet daily. At this time I am going to discontinue Glyambi and start this patient on a GL P 1 known as Ozempic injection weekly and titrate up.1mg over 2 months.. Continue to SGOT 2 Jardiance which she was receiving when he was taking Glyambi. Encouraged patient follow diet close. He has not utilizing his glucose will check into getting approved for freestyle Last continues glucose monitor.. Will have this patient come back go over the continues glucose monitor and start Ozempic. Assessment & Plan (08/19/2017 2:11 PM CDT): Diabetes is unchanged. Continue current treatment regimen. Reminded to bring in blood sugar diary at next visit. Dietary recommendations for ADA diet. Discussed ways to avoid symptomatic hypoglycemia. Discussed sick day management. Discussed foot care. Diabetes will be reassessed in 6 months. In May his hemoglobin HgbA1c was 7.9 this is a huge improvement from a 9.3 from 6 months earlier. Will check hemoglobin HgbA1c today and a fructosamine level. Assessment & Plan (05/18/2017 6:44 PM TUBE KNITTER): Patient is here for follow-up visit regarding his diabetes. He takes glucometer readings at random. She always fasting. He has noticed improvement in his blood sugars are running less than 180. His hemoglobin HgbA1c in December was 9.3 estimated glucose of 220. Fructosamine was 476. Fructosamine in April was 286 normal is 270-290. This confirms an improvement. Will recheck hemoglobin HgbA1c today. Patient will continue present medications. Uncertain whether his insurance will cover present medication of glyxambi 5/10 once tablet per day. Is also on 36 units of basal insulin brand name at this time is to less today. Will see him back in 3 months for HgbA1c prior to next visit. Has is what sounds like neuropathy symptoms in his hands. Assessment & Plan (02/14/2017 7:02 PM TUBE KNITTER): Diabetes not been control using the NovoLog 70 30 dosage of 24 units in morning 10 in the p.m.. Patient ran out of insulin and put him back on Lantus at 30 units per day for about 2 days prior to him coming in. This was was given make sure he has some insulin and not be without any. Patient's opinion that glucose was better on the Lantus when he went back on it. I am not necessarily convinced problem in the past he was not taking 2 meals per day. His glucometer readings have been good a x1 60 over the last 2 days but this morning was 300 plans at this time resume Lantus at 30 units per day progress report in 5 days with his glucometer readings in the morning. Patient referred to data warehouse manager he did not going the past. I will consider this for possible GL P 1 therapy in the near future. Assessment & Plan (01/22/2017 6:04 PM CDT): Patient is here for follow-up visit he has been taking Lantus 30 units daily. Given this patient rapid acting insulin in a sliding scale directions. Patient is uses rapid acting insulin 5 times at the most in the last 5 weeks. He recognizes glucometer readings frequently over 200 initially he had a great response insulin. He is eating 1 meal per day. Plans patient form to eat minimal 2 meals per day discontinue Lantus and NovoLog rapid acting insulin/aspart. Start this patient on NovoLog 70/30 a.m. dose 24 p.m. dose 10 years patient understands he must eat 2 meals per day. See him back in 2 weeks continues glucometer readings. Left ankle injury 12/16/2016 08/20/2020 Assessment & Plan (12/17/2016 2:47 PM CDT): Patient injured his ankle 3 weeks ago stepping down off a step he fell did not injure any other parts of his body. Since that time his ankles continued to hurt him. Down on his ankle with this foot continues to hurt this is left ankle and left foot. X-rays of his left ankle and left foot were negative. He is given Naprosyn 500 mg twice a day. This is 1st attempt to seek medical attention regarding his ankle pain. Encounters Date Type Department Care Team Description 01/20/2025 Telephone [facility] [address] [place] [address] Bismark Muñoz MD 11/28/2024 11:30 AM CDT Lab [facility] [address] [place] [address] Screening PSA (prostate specific antigen); Type 2 diabetes mellitus with other specified complication, with long-term current use of insulin 11/28/2024 10:00 AM CDT Office Visit [facility] [address] [place] [address] Bismark Muñoz MD Type 2 diabetes mellitus with other specified complication, with long-term current use of insulin (Primary Dx); Screening PSA (prostate specific antigen); Nicotine dependence, cigarettes, uncomplicated; Diabetic ketoacidosis without coma associated with type 2 diabetes mellitus (HCC); Moderate episode of recurrent major depressive disorder (HCC); Encounter for preventive health examination 11/25/2024 Telephone [facility] [address] [place] [address] Bismark uMñoz MD Diabetic Eye Exam 11/11/2024 Telephone [facility] [address] [place] [address] Bismark Muñoz MD Med Refill from Last 3 Months Immunizations Immunization Administration Dates Next Due Influenza, Quadrivalent, Spl it, Preservative Free, Intramuscular 05/11/2023,04/26/2022 Influenza, Trivalent, Preservative Free, Intramu scular 01/28/2024 Pneumococcal Conjugate Pcv20 04/26/2022 Tdap 06/28/2018 ZOSTER Recombinant 04/26/2022 Surgical History Surgery Date Site/Laterality Comments OTHER SURGICAL HISTORY 04/06/2006 - 04/05/2007 Bilt arthroscopcy both knees OTHER SURGICAL HISTORY 04/06/2006 - 04/05/2007 reinjury to the Lt knee - arthroscopy - Nov. HIP ARTHROPLASTY 04/06/2006 - 04/05/2007 Hip replacement OTHER SURGICAL HISTORY 04/06/2005 - 04/05/2006 Lipoma of back: Excision of lipoma of back OTHER SURGICAL HISTORY 04/06/1999 - 04/05/2000 Incarcerated umbilical hernia: Umbilcal herniorrhaphy JOINT REPLACEMENT KNEE ARTHROSCOPY CARPAL TUNNEL RELEASE 04/06/2011 - 04/05/2012 Right HERNIA REPAIR 06/23/2019 TEP Medical History Medical History Date Comments Hx Other Medical Lipoma of back Hx Other Medical Incarcerated um bilical hernia Diabetes mellitus Peripheral neuropathy Weight loss Constipation Erectile dysfunction Back pain Visual impairment Type 2 diabetes mellitus Family History Medical History Relation Name Comments Mental illness Brother Blood Clot Father Cancer Mother Mental illness Mother Relation Name Status Comments Brother Father Mother Social History Tobacco Use Types Packs/Day Years Used Date Smoking Tobacco: Every Day Cigarettes 0.8 46.6 Started: 1978 Smokeless Tobacco: Never Tobacco Cessation:Ready to Q uit: Not Asked; Counseling Given: Not Answered Alcohol Use Standard Drinks/Week Comments Yes 0 (1 standard drink = 0.6 oz pur e alcohol) rarely [facility] Utilities Answer Date Recorded In the past 12 months has th [employer] electric, gas, oil, or water [employer] threatened to shut off services in your home? Yes 05/11/2023 Social Connection and Isolation Panel Answer Date Recorded In a typical week, how many times do you talk on the phone with family, friends, or neighbors? Three times a week 05/11/2023 How often do you get togethe r with friends or relatives? Never 05/11/2023 How often do you attend [facility] or amish services? Never 05/11/2023 Do you belong to any clubs o r organizations such as presybeterian groups, unions, fraternal or athletic groups, or school groups? No 05/11/2023 How often do you attend meet ings of the clubs or organizations you belong to? Never 05/11/2023 Are you , , di vorced, , never , or living with a partner? 05/11/2023 AUDIT-C Answer Date Recorded Q1: How often do you have a drink containing alc ohol? Monthly or less 05/09/2023 Q2: How many drinks containi ng alcohol do you have on a typical day when you are drinking? 1 or 2 05/09/2023 Q3: How often do you have si x or more drinks on one occasion? Less than monthly 05/09/2023 Overall Financial Resource Strain (CARDIA) Answe r Date Recorded How hard is it for you to pa y for the very basics like food, housing, medical care, and heating? Somewhat hard 05/11/2023 PHQ-2 Answer Date Recorded PHQ-2 Total Score (If total score is 3 or more points, staff should administer the PHQ-9) 0 11/28/2024 Hunger Vital Sign Answer Date Recorded Within the past 12 months, y ou worried that your food would run out before you got the money to buy more. Never true 05/11/19 24 Within the past 12 months, t he food you bought just didn't last and you didn't have money to get more. Never true 05/11/2023 PRAPARE - Transportation Answer Date Re corded In the past 12 months, has l ack of transportation kept you from medical appointments or from getting medications? No 08/2023 In the past 12 months, has l ack of transportation kept you from meetings, work, or from getting things needed for daily living? No 05/11/2023 Housing Stability Vital Sign Answer Allan e Recorded In the last 12 months, was t here a time when you were not able to pay the mortgage or rent on time? Yes 05/11/2023 In the last 12 months, how many places have you lived? 2 05/11/2023 In the last 12 months, was t here a time when you did not have a steady place to sleep or slept in a jail (including now)? No 05/11/2023 Personal Safety Answer Date Recorded Have you ever been in or are you currently in a harmful physical or emotional relationship or is someone making you feel afraid or unsafe? Denies 05/09/2023 Education Answer Date Recorded What is the highest level of school you have completed or the highest degree you have received? 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 Not on file Not on file Not on file Obstetrics History Last Filed Vital Signs Vital Sign Reading Time Taken Comments Blood Pressure 116/70 11/28/2024 10:38 AM CDT Pulse 94 11/28/2024 10:38 AM CDT Temperature 36.5 C (97.7 F) 11/28/2024 10:38 AM CDT Respiratory Rate 16 11/28/2024 10:38 AM CDT Oxygen Saturation 97% 11/28/2024 10:38 AM CDT Inhaled Oxygen Concentration - - Weight 95.9 kg (211 lb 6.4 oz) 11/28/2024 10:38 AM CDT Height 177.8 cm (5' 10) 11/28/2024 10:38 AM CDT Body Mass Index 30.33 11/28/2024 10:38 AM CDT Plan of Treatment Health Maintenance Due Date Last Done Comments Dilated Eye Exam 1962 Lung Cancer Screening 2012 Zoster Vaccine (2 of 2) 06/21/2022 04/26/2022 Colon Cancer Screening-Colonoscopy 01/28/2024 01/27/2014, 01/27/2014 Foot Exam 11/05/2024 11/06/2023, 09/05, 08/16/2019, Additional history exists Covid-19 Vaccine (2024- 6 season) 2024 04/26/2022, 08/06/2020, 07/09/2020 Influenza Vaccine (#1) 2024 , 05/11/2023, 04/26/2022 Hemoglobin A1C 01/10/2025 07/11/2024, 08/0 05/2023, 05/09/2023, Additional history exists eGFR 07/11/2025 07/11/2024, 02/0 08/2023, 05/10/2023, Additional history exists Albumin Creatinine Ratio, Urine 11/28/2025 11/28/2024, 11/06/2023, 10/27/2022, Additional history exists Depression Screening 11/28/2025 11/28/2024, 11/06/2023, 03/07/2022, Additional history exists Lipid Panel 11/28/2025 11/28/2024, 08/0 05/2023, 10/27/2022, Additional history exists Regular Well Visit/Exam 18-64 11/28/2025, 11/06/2023, 12/06/2021, Additional history exists Prostate Cancer Screening-PSA 11/28/2026, 10/27/2022, 07/06/2020, Additional history exists DTaP/Tdap/Td Vaccine (2 - Td or Tdap) 06/28/2028 06/28/2018 Colon Cancer Screening-CT Colonography Discontinued 01/27/2014, 01/27/2014 Colon Cancer Screening-DNA Stool Discontinued 01/28/20 14, 01/27/2014 Colon Cancer Screening-FIT Discontinued 01/27/2014, Colon Cancer Screening-Sigmoidoscopy Discontinued 01/27/2014, 01/27/2014 Hepatitis C Screening Completed 08/13/2016 Pneumococcal vaccine <65 Completed 04/26/2022 Hepatitis B Screening Completed 11/06/2023 Medical Devices Implanted Type Area Storage Battery Inspector And Tester Device Identifier Shelf Expiration Date Model / Serial / Lot [employer] [id number] Progrip 15x9cm Self Bulk Pallet Builder Rectangle Mesh Surgical Polyester Hernia - [id number] Implanted:Qty: 1 on 06/23/2019 by Antonio Camilo MD at [facility] Right: Abdomen [employer] 04/05/2023 [id number] / / [id number] [employer] [id number] Progrip 15x9cm Self Bulk Pallet Builder Rectangle Mesh Surgical Polyester Hernia - [id number] Implanted:Qty: 1 on 06/23/2019 by Antonio Camilo MD at [facility] Left: Abdomen [employer] 04/05/2023 [id number] / / [id number] Procedures Procedure Name Priority Date/Time Associated Diagnosis Comments ALBUMIN CREATININE RATIO, URINE Routine 11/28/2024 11:31 AM CDT Type 2 diabetes mellitus with other specified complication, with long-term current use of insulin LIPID PANEL Routine 11/28/2024 11:31 AM CDT Type 2 diabetes mellitus with other specified complication, with long-term current use of insulin PSA SCREEN Routine 11/28/2024 11:31 AM CDT Screening PSA (prostate specific antigen) EGFR Routine 07/11/2024 2:58 PM CDT Type 2 diabetes mellitus with other specified complication, with long-term current use of insulin (HCC) HEMOGLOBIN A1C Routine 07/11/2024 2:58 PM CDT Type 2 diabetes mellitus with other specified complication, with long-term current use of insulin (HCC) HEPATITIS C ANTIBODY Routine 08/13/2016 6:55 PM CDT COLONOSCOPY IMAGES 01/27/2014 from Last 3 Months or Most Recently Relevant to Health Maintenance Results * PSA screen (11/28/2024 11:31 AM CDT) PSA-Total 0.23 <=5.40 ng/mL Comment: Interpretive Data AGE SEX REFERENCE INTERVAL 0 minutes-150 years Female None 0 minutes-49 years Male None 50-59 years Male 0-3.90 60-69 years Male 0-5.40 70-79 years Male 0-6.20 80-150 years Male 0-6.20 The Vadim PSA Total assay procedure was used. Results from different manufacturers or methods may not be comparable. Serial testing should be performed using the same method. Current interpretive data last revised 21. Testing performed by: [address] [address] Blood 11/28/2024 11:3 1 AM CDT 11/28/2024 5:22 PM CDT Bismark Muñoz MD LAB BLOOD ORDERABLES Final Result ADOLFO [id number] [facility] Department [place] [address] * Albumin Creatinine Ratio, Urine (11/28/2024 11:31 AM CDT) Albumin Ur <12.0 mg/L Comment: Interpretive Data No reference range established. Current interpretive data was last revised 2018. Testing performed by: [facility], [address] [place] [address]., [id number] Creatinine Ur 54.7 mg/dL ADOLFO COOLEY Comment: Interpretive Data No reference range established. Current interpretive data was last revised 2018. Testing performed by: [address] [address] Albumin Creatinine Ratio, Ur <22 1 - 29 mg/g ADOLFO COOELY Comment:Testing performed by : [address] [address] Urine 11/28/2024 11:3 1 AM CDT 11/28/2024 5:22 PM CDT Bismark Muñoz MD LAB URINE ORDERABLES Final Result ADOL[facility] [id number] [place] [address] Department [place] [address] * Lipid panel (11/28/2024 11:31 AM CDT) Cholesterol 165 30 - 199 mg/dL Comment: Interpretive Data Ages < or = 19 years Acceptable: <170 mg/dL Borderline high: 170-199 mg/dL High: >or= 200 mg/dL Ages > or = 20 years Desirable: <200 mg/dL Borderline high: 200-239 mg/dL High: >or= 240 mg/dL Literature References: 1. Expert Panel on Integrated Guidelines for Cardiovascular Health and Risk Reduction in Children and Adolescents. Pediatrics 2011;128:S213 2. NCEP Expert Panel. Circulation 2004;110:227 Current Interpretive Data was last revised on 2017. Testing performed by: [facility], [address] [place] [address]., [id number] Triglycerides 96 <=149 mg/dL ADOLFO COOLEY Comment: Interpretive Data Ages < or = 9 years Acceptable: <75 mg/dL Borderline high: 75-99 mg/dL High: >or= 100 mg/dL Ages 10 to 20 years Acceptable: <90 mg/dL Borderline high: 90-129 mg/dL High: >or= 130 mg/dL Ages > or = 20 years Desirable: <150 mg/dL Borderline high: 150-199 mg/dL High: 200-499 mg/dL Very high: >or= 499 mg/dL Literature References: 1. Expert Panel on Integrated Guidelines for Cardiovascular Health and Risk Reduction in Children and Adolescents. Pediatrics 2011;128:S213 2. NCEP Expert Panel. Circulation 2004;110:227 Current Interpretive Data was last revised on 2017. Testing performed by: [facility], [address] [place] [address]., [address] HDL 44 >=40 mg/dL ADOLFO COOLEY Comment: Interpretive Data Ages < or = 19 years Acceptable: >45 mg/dL Borderline low: 40-45 mg/dL Low: <40 mg/dL Ages > or = 20 years Desirable: >or= 60 mg/dL Low: <40 mg/dL Literature References: 1. Expert Panel on Integrated Guidelines for Cardiovascular Health and Risk Reduction in Children and Adolescents. Pediatrics 2011;128:S213 2. NCEP Expert Panel. Circulation 2004;110:227 Current Interpretive Data was last revised on 2017. Testing performed by: [facility], [address] [place] [address]., [id number] LDL, calculated 103 <=129 mg/dL ADOLFO Comment: Interpretive Data Ages < or = 19 years Acceptable: <110 mg/dL Borderline high: 110-129 mg/dL High: >or= 130 mg/dL Ages > or = 20 years Optimal: <100 mg/dL Near optimal: 100-129 mg/dL Borderline high: 130-159 mg/dL High: >160 mg/dL Calculated using the Miles LDL-C estimating equation. This equation was implemented on 2023. Prior to this date LDL-C was estimated using the Friedewald equation. Literature References: 1. Expert Panel on Integrated Guidelines for Cardiovascular Health and Risk Reduction in Children and Adolescents. Pediatrics 2011;128:S213 2. NCEP Expert Panel. Circulation 2004;110:227 3. Miles Wallace et al. LOLIS Cardiol. 2020 August 04;5(5):540-548. doi: 10.1001/jamacardio.2020.0013 Current Interpretive Data was last revised on 2023. Testing performed by: [facility], [address] [place] [address]., [id number] Non-HDL Cholesterol 121 mg/dL ADOLFO Comment: Interpretive Data Ages < or = 19 years Acceptable: <120 mg/dL Borderline high: 120-144 mg/dL High: >145 mg/dL Ages > or = 20 years When triglycerides are >200 mg/dL, Non-HDL cholesterol is a secondary target of therapy with treatment goals that are 30 mg/dL greater than the LDL cholesterol target. Literature References: 1. Expert Panel on Integrated Guidelines for Cardiovascular Health and Risk Reduction in Children and Adolescents. Pediatrics 2011;128:S213 2. NCEP Expert Panel. Circulation 2004;110:227 Current Interpretive Data was last revised on 2017. Testing performed by: [facility], [address] [place] [address]., [id number] Chol/HDL ratio 4 NELDADAVIDSON Comment:Testing performed by : [facility], [address] [place] [address]., [id number] Blood 11/28/2024 11:3 1 AM CDT 11/28/2024 5:22 PM CDT Bismark Muñoz MD LAB BLOOD ORDERABLES Final Result Performing Organization Address [facility]/ZIP Co de Phone Number ADOLFO Wesley Ann Department [employer] [place] [address] * eGFR (07/11/2024 2:58 PM CDT) eGFR >90 >=60 mL/min/1. 73 m2 Comment: Interpretive Data Reference Interval Normal >/= 90 mL/min/1.73m2 Mildly decreased* 60 - 89 mL/min/1.73m2 Mildly to moderately decreased 45 - 59 mL/min/1.73m2 Moderately to severely decreased 30 - 44 mL/min/1.73m2 Severely decreased 15 - 29 mL/min/1.73m2 Kidney Failure < 15 mL/min/1.73m2 *Relative to young adult level Estimated glomerular filtration rate is determined by the 2020 CKD-EPI equation recommended by the National Kidney Foundation (A Unifying Approach to GFR Estimation: Recommendations of the NKF-ASK Task Force on Reassessing the Inclusion of Race in Diagnosing Kidney Disease, JASN 2020). The CKD-EPI equation should not be used for patients with unstable renal function and has not been validated in children and those over 70. Current interpretive data was last reviewed 2021. Testing performed by: [facility], [address] [place] [address]., [id number] Blood 07/11/2024 2:58 PM CDT 07/11/2024 7:01 PM CDT Bismark Muñoz MD LAB BLOOD ORDERABLES Final Result Performing Organization Address City/[facility]/ZIP Co de Phone Number ADOLFO [phone] [address] Department [employer] [place] [address] * (ABNORMAL) Hemoglobin A1c (07/11/2024 2:58 PM CDT) Pathologist [facility] Hgb A1C 9.0(H) 4.0 - 5.6 % Comment:Testing performed by : [address] [id number] Estimated Average Glucose 212 mg/dL ADOLFO Comment: The ADA recommends reporting an estimated Average Glucose (eAG) with all Hemoglobin A1c results using the equation derived from a study of 507 normal and diabetic adults. Minority populations were underrepresented and children were not included. (Diabetes Care 31:3911-1758, 2008). The eAG is not equivalent to a fasting glucose. Testing performed by: [address] [id number] Blood 07/11/2024 2:58 PM CDT 07/11/2024 6:33 PM CDT Bismark Muñoz MD LAB BLOOD ORDERABLES Final Result Performing Organization Address City/[facility]/ZIP Co de Phone Number ADOLFO [address] [facility] [place] [address] * Hepatitis C antibody (08/13/2016 6:55 PM CDT) [facility] Hep C Ab Negative Negative ADOLFO Blood specimen (specimen) 08/13/2016 6:55 PM CDT 08/13/2016 6:55 PM CDT Bismark Muñoz MD LAB MICROBIOLOGY - GENERAL ORDERABLES Edited Result - Final Performing Organization Address [facility]/ZIP Co de Phone Number [facility] [address] [facility] [place] [address] * COLONOSCOPY IMAGES (01/27/2014) Anatomical Region Laterality Modality Other Narrative 01/27/2014 Ordered by an unspecified provider. Historical Provider GI PROCEDURE ORDERABLES F inal Result from Last 3 Months or Most Recently Relevant to Health Maintenance Insurance [employer] [facility] ACCESS [facility] Advance Directives For more information, please contact: [phone] * Full Code (Latest Code Status on File) Date Activated Date Inactivated Comments 05/09/2023 2:22 AM 05/11/2023 10:36 PM * Full Code Date Activated Date Inactivated Comments 12/29/2022 12:53 AM 12/31/2022 6:03 PM Care Teams Business Programmer Relationship Specialty Start Date End Date Bismark Muñoz MD PCP - General 11/27/11
--- OUTSIDE RECORDS SUMMARY | 2025-02-04 08:30 | XMS_ITS | Encounter Summary ---
[facility] Address [address] [place] [address] Phone Care Team Providers Care Bi Manager Name Role Phone Bismark Muñoz MD Primary Care Provider [phone]- [phone] Encounter Details Date Type Department Care Team (Late st Contact Info) Description 03/10/2017 Orders Only [facility] [address] [place] [address] Queta Morrison MA Social History Tobacco Use Types Packs/Day Years Used Date Smoking Tobacco: Every Day Smokeless Tobacco: Never Sex and Gender Information Value Date Recorded Sex Assigned at Not on file 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
--- OUTSIDE RECORDS SUMMARY | 2025-02-04 08:30 | XMS_ITS | Clinical Summary ---
Author Organization [facility] Address [address] [place] [address] Phone Care Team Providers Care Crop Or Livestock Tenant Farmer Name Role Phone Bismark Muñoz MD Primary Care Provider [phone]- [phone] Active Problems Problem Noted Date Diagnosed Date PTSD (post-traumatic stress disorder) 01/02/2021 Social History Tobacco Use Types Packs/Day Years Used Date Smoking Tobacco: Never Assessed PHQ-2 Answer Date Recorded Total Score - Questions 1-9 1 12/06 Sex and Gender Information Value Date Recorded Sex Assigned at Male 11/17/2022 11:40 AM CDT Legal Sex Male 7:14 PM CDT Gender Identity Male 11/17/2022 11:40 AM CDT Sexual Orientation Not on file Plan of Treatment Health Maintenance Due Date Last Done Comments Hepatitis C Virus (HCV) Screening 1960 Cologuard 07/19/2007 Colonoscopy 07/19/2007 Colorectal Cancer Screening 07/19/2007 Immunochemical Fecal Occult Blood 07/19/2007 PSA Discussion 2017 Zoster Immunization (2 of 2) 06/21/2022 04/26/2022 Influenza Immunization (#1) 12/05/202404/07, 04/17/2017 SARS-COV-2 Immunization ( season) 2024 04/26/2022, 08/06/2020, 07/09/2020 Respiratory Syncytial Virus (RSV) Immunization (Adult) (1 - 1-dose 75+ series) 2037 DTaP/Tdap/Td Immunization Discontinued 06/28/2018 TdaP Immunization Completed 06/28/2018 Pneumococcal Immunization (5 0+ years) Completed 04/26/2022 Pneumococcal Immunization Combined Discontinued 04/26/2022 Hepatitis B Immunization Aged Out No longer eligible based on patient's age to complete this topic Human Papillomavirus (HPV) Immunization Aged Out No longer eligible based on patient's age to complete this topic Meningococcal Immunization (ACWY) Aged Out No longer eligible based on patient's age to complete this topic Rotavirus Immunization Aged Out No lo nger eligible based on patient's age to complete this topic Goals Goal Patient Goal Type Associated Problems Recent Progress Patient-Stated? Author Behavioral Health Behavioral Health No change(02/17 4:38 PM ASPHALT TAMPER) No Leonie Francsi LCSW Note: H will gain insight regarding impact of trauma and gain relief from traumatic stress. Goal Reviewed with: patient today Readiness to change: Ready to change Department associated with goal: [facility] Steps to achieve goal: will share personal trauma story in counseling/psychotherapy sessions. will learn/identify how trauma has impacted personal life, physical health and behavioral health. will identify and practice, at least two, skills/activities/routines, to gain relief from the impact of trauma. I want to have more empathy for others. Behavioral Health On track(2022 4:38 PM ASPHALT TAMPER) No Leonie Francis LCSW Note: Goal Reviewed with: patient today Readiness to change: Ready to change Department associated with goal: [facility] Steps to achieve goal: will verbalize and process, in sessions, what pt would like to be sharing with others, what pt would like them to hear and understand. will learn and/or identify effective, assertive and reasonable means of communicating thoughts and feelings with more empathy. will practice these new ways of communicating and assessing situations in session. will identify a plan to communicate, using new skills, with another individual in the pt's life outside of counseling Will attend individual and/or group sessions at least 1x/month Care Teams Crop Or Livestock Tenant Farmer Relationship Specialty Start Date End Date Bismark Muñoz MD [address] [place] [address] PCP - General Internal Medicine 11/05/20
[2025-02-04 08:35] VITALS: BP 128/72; PULSE 102; RESP 20; TEMP 37.4; O2SAT 100
--- NOTE | 2025-02-04 08:38 | ED.UPPEXIN ---
HPI - Extremity Injury (Upper) General Chief Complaint: Extremity Injury, Upper Stated Complaint: Left shoulder pain Time Seen by Provider: 02/04/25 08:30 patient presents to the [facility] with complaints of increased left shoulder pain. Patient noted history of chronic left shoulder pain was scheduled earlier this year to have a shoulder replacement with a local orthopedic physician. Patient reports he did not have this procedure done. Reports recently shoulder pain was doing well until he had a GI bug and had 1 week of nausea, vomiting, diarrhea, and was laying around frequently. Denies any new trauma or injury to the area. Denies any new numbness or tingling down left arm. Related Data Home Medications ?Medication ?Instructions ?Recorded ?Confirmed ?Last Taken ?Type empagliflozin 25 mg tablet 25 mg PO DAILY 03/03/21 04/11/23 Unknown History (Jardiance) blood-glucose sensor (FreeStyle 10/12/22 04/11/23 Unknown History Last 3 Sensor device) dulaglutide 1.5 mg/0.5 mL 1.5 mg subcut WEEKLY 10/12/22 04/11/23 Unknown History subcutaneous pen injector (Trulicity) insulin lispro 100 unit/mL 100 sliding scale dose subcut TID 10/12/22 04/11/23 Unknown History subcutaneous pen (Humalog KwikPen (U-100) Insulin) venlafaxine 150 mg 150 mg PO DAILY 10/12/22 04/11/23 Unknown History capsule,extended release 24 hr venlafaxine 75 mg capsule,extended 75 mg PO DAILY 10/12/22 04/11/23 Unknown History release 24 hr Allergies Allergy/AdvReac Type Severity Reaction Status Date / Time amoxicillin Allergy Intermediate Rash Verified 02/04/25 08:50 metformin Allergy Mild Abdominal Verified 02/04/25 08:50 Pain Review of Systems Constitutional: Constitutional: Reports as per HPI, Denies chills, Denies fatigue, Denies fever(s) and Denies weakness Cardiovascular: Cardiovascular: Reports no additional cardiovascular complaints Respiratory: Respiratory: Reports no additional respiratory complaints Gastrointestinal: Gastrointestinal: Reports no additional gastrointestinal complaints Genitourinary: Genitourinary: Reports no additional male genitourinary complaints Musculoskeletal: Musculoskeletal: Reports as per HPI, Reports arthralgias, Denies joint swelling and Denies muscle cramps Integumentary/Breasts: Skin/Breast: Reports as per HPI, Denies erythema and Denies rash Neurologic: Reports as per HPI, Denies numbness and Denies weakness Psychiatric: Psychiatric: Reports no additional psychiatric complaints Endocrine: Endocrine: Reports no additional endocrine complaints Hematologic/Lymphatic: Hematologic/Lymphatic: Reports no additional hematologic/lymphatic complaints Allergic/Immunologic: Allergic/Immunologic: Reports no additional allergic/immunologic complaints [facility] Past Medical History Medical History Dental infection Depression Diabetes Surgical History Surgical History History of carpal tunnel surgery History of hip surgery History of knee replacement Family History Family History Mother Family history non-contributory Social History Social History Smoking packs per day: 1 Smoking cigarettes per day: 20.0 Smoking status: Current every day smoker Alcohol intake: current Substance use: never Living arrangements: with family Gender identity (if verbalized by the patient): Male Sexual Orientation (if Verbalized by the Patient): Straight or Heterosexual Spiritual care concerns: No Exam Const: General: healthy appearing and no acute distress Nutritional Appearance: well nourished Orientation/consciousness: patient oriented x3 Limitations: no limitations Neck: Neck: normal visual inspection and no lymphadenopathy Other: Left trapezius tenderness. Chest: Chest palpation & inspection: normal inspection of the chest and no tenderness Resp: Effort & Inspection: normal respiratory effort Auscultation: clear to auscultation bilaterally Cardio: Rate: regular rate Rhythm: regular rhythm Back/Spine/Pelvis: Back: no CVA tenderness Other: No cervical tenderness. Noted left paraspinal cervical area tenderness. No rash, erythema, ecchymosis, or edema noted. Skin: General skin exam: normal color Rashes: no rashes Wounds: no wounds Neuro: General: patient oriented x3 and moves all extremities Speech: normal speech Gait exam (Neuro): Normal gait present Extrem: Left upper extremity: shoulder/upper arm inspection abnormal, tenderness, axillary nerve sensory function normal and abnormal ROM; inspection normal, no swelling, ROM limited, no abrasions, no lacerations, no ecchymosis, no crepitus, no foreign bodies, no penetrating wound, no deformity and no unsual warmth Psych: Mental Status: mental status grossly normal Affect: normal affect Attitude: cooperative Course Course Level of Care: Express Care Visit MDM - Extremity Injury (Upper) MDM Narrative Medical decision making narrative: Patient has been seen by Orthopedics supposed to have a shoulder replacement earlier this year but did not complete the surgery. Spoke with patient about options will call Dr. Meléndez for follow up on Thursday. No need for new imaging, no new injury noted. The patient was evaluated by myself in the express care. History is obtained from patient who is an independent historian and physical exam was performed. Available medical records were reviewed at this time. Exam findings show no acute concerns or changes; patient is non-toxic appearing and is in no distress. Patient is appropriate for outpatient treatment and follow-up. I have evaluated and discussed social determinants of health with the patient that could potentially impact subsequent diagnosis and treatment plans. Differential diagnosis and treatment plan were discussed with the patient. Patient agrees with discussion and after shared medical decision making agrees with plan of care. All questions were answered to the patient's satisfaction. Differential Diagnosis Differential diagnosis: Likely finger sprain, dislocation of finger, dislocation of shoulder, fracture of humerus and fracture of clavicle Medical Records Attestation: I reviewed the patient's medical records. Discharge Plan Discharge Clinical Impression: Left shoulder pain Patient Disposition: Home Condition: Stable Instructions: Antibiotic Form, Shoulder Sprain (ED), Shoulder Pain (ED) Additional Instructions: call your orthopedic physician 1st thing Thursday morning for evaluation Minimize activities that aggravate the condition The RICE protocol. Follow the RICE protocol as soon as possible after your injury: Rest your affected limb by not walking on it/not using this. Ice should be immediately applied to keep the swelling down. It can be used for 20 to 30 minutes, three or four times daily. Do not apply ice directly to your skin. Gentle range of motion exercises as tolerated. Elevate affected area above the level of your heart if possible as often as possible during the first 48 hours then as needed for increased swelling. Medication: Nonsteroidal anti-inflammatory drugs (NSAIDs) such as ibuprofen and naproxen can help control pain and swelling. Because they improve function by both reducing swelling and controlling pain, they are a better option for mild sprains than narcotic pain medicines. Please schedule a follow-up visit with your personal physician for further evaluation and treatment within 1week OR If your symptoms persist, change or worsen significantly before you can contact your personal physician then please, without delay, go to the emergency department for further evaluation. Patient Language: Dutch Prescriptions: New methylprednisolone [Medrol (Vish)] 4 mg tablets,dose pack See Rx Instructions .ROUTE .COMPLEX Qty: 21 0RF Rx Instructions: for 6 days cyclobenzaprine 10 mg tablet 10 mg PO TID PRN (Reason: muscle spasm) Qty: 30 0RF lidocaine 5 % adhesive patch,medicated 1 patch topical DAILY Qty: 15 0RF Rx Instructions: leave on most painful area for up to 12 hrs No Action Jardiance 25 mg tablet 25 mg PO DAILY Rx Instructions: PT OUT OF MED insulin lispro [Humalog KwikPen Insulin] 100 unit/mL insulin pen 100 sliding scale dose SUBCUT TID Rx Instructions: PT OUT OF MED venlafaxine 150 mg capsule,extended release 24hr 150 mg PO DAILY Patient Comments: PT OUT OF MED Trulicity 1.5 mg/0.5 mL pen injector 1.5 mg SUBCUT WEEKLY Rx Instructions: PT OUT OF MED (DME) FreeStyle Last 3 Sensor Device MISCELLANEOUS venlafaxine 75 mg capsule,extended release 24hr 75 mg PO DAILY Rx Instructions: PT OUT OF MED Toujeo SoloStar U-300 Insulin 300 unit/mL (1.5 mL) insulin pen 55 unit subcut DAILY 30 Days Qty: 5.499 0RF Rx Instructions: PT OUT OF MED Toujeo Max U-300 SoloStar 300 unit/mL (3 mL) insulin pen 55 unit subcut DAILY Qty: 3 1RF Jardiance 25 mg tablet 25 mg PO DAILY Qty: 30 1RF Follow-up/Referrals: Wanda,Bismark Birmingham MD [Primary Care Provider, Unknown] Time of Disposition: 08:57
== END 2025-02-04 08:59 | disposition home or self-care (01) ==
PROVIDERS: Emergency Provider Nurse Practitioner Family; PCP Internal Medicine
DX: M25.512 Pain in left shoulder (principal); E11.9 Type 2 diabetes mellitus without complications; Z79.4 Long term (current) use of insulin; Z79.84 Long term (current) use of oral hypoglycemic drugs; Z79.85 Long-term (current) use of injectable non-insulin antidiabetic drugs; F32.A Depression, unspecified; F17.210 Nicotine dependence, cigarettes, uncomplicated
CPT/HCPCS: 99213; G0463